=== PATIENT | female | born 1970 | race Caucasian/White ===

== ENCOUNTER → 2017-07-24 | Outpatient (CLI) | payer OTHER ==
--- NOTE | 2017-07-24 16:54 | RADIOLOGY REPORT (SQ) ---
EXAM DESCRIPTION: LUMBAR SPINE COMPLETE COMPLETED DATE/TIME: 07/24/2017 4:46 pm REASON FOR STUDY: LOW BACK PAIN M54.5 LOW BACK PAIN COMPARISON: None. NUMBER OF VIEWS: Five views including obliques. TECHNIQUE: AP, lateral, oblique, and sacral radiographic images acquired of the lumbar spine. LIMITATIONS: None. FINDINGS: MINERALIZATION: Normal. SEGMENTATION: Normal. No transitional anatomy. ALIGNMENT: Normal. VERTEBRAE: Maintained height. No fracture or worrisome bone lesion. DISCS: Disc space narrowing in the lower lumbar spine, particularly at L4-L5. POSTERIOR ELEMENTS: Pedicles and facets are intact. No pars defect or posterior arch defects. HARDWARE: None in the spine. PARASPINAL SOFT TISSUES: Normal. PELVIS: Intact as visualized. No fractures or worrisome bone lesions. SI joints intact. OTHER: No other significant finding. IMPRESSION: DEGENERATIVE DISC DISEASE AT L4-L5. NO ACUTE FINDINGS. TECHNICAL DOCUMENTATION: JOB ID: [id number] [employer]- All Rights Reserved
== END ==
LOC: OD 16:27
PROVIDERS: ATTEND Physician Assistant
DX: M54.5 Low back pain (principal)
CPT/HCPCS: 72110

== ENCOUNTER → 2019-09-17 | Outpatient (CLI) | payer OTHER ==
--- NOTE | 2019-09-17 16:50 | RADIOLOGY REPORT (SQ) ---
EXAM DESCRIPTION: CTA CHEST COMPLETED DATE/TIME: 09/17/2019 4:18 pm REASON FOR STUDY: R00.0 TACHYCARDIA, UNSPECIFIED, R79.89 OTHER SPECIFIED ABNORMAL FINDINGS OF R00.0 TACHYCARDIA, UNSPECIFIED R79.89 OTHER SPECIFIED ABNORMAL FINDINGS OF BLOOD CHEMISTRY R00.2 PALPITA TIONS COMPARISON: None. TECHNIQUE: CT scan of the chest performed using helical scanning technique with dynamic intravenous contrast injection. Images reviewed with lung, soft tissue and bone windows. Reconstructed coronal and sagittal MPR images reviewed. Additional 3 dimensional post-processing performed to develop Maximal Intensity Projection images (GA P). All images stored on PACS. All CT scanners at this facility use dose modulation, iterative reconstruction, and/or weight based d osing when appropriate to reduce radiation dose to as low as reasonably achievable (ALARA). [facility]: Dose Right [facility]: CareDose [facility]: Dose Right [facility]: Teradose 4D [facility]: Tyba CONTRAST TYPE AND DOSE: contrast/concentration: Isovue 350.00 mg/ml; Total Contrast Delivered: 64.0 ml; Total Saline Delivered: 80.0 ml Contrast bolus optimized for the pulmonary arteries. Not diagnostic for the aorta. RENAL FUNCTION: None required. The patient is less than 50 years old. RADIATION DOSE: CT Rad equipment meets quality standard of care and radiation dose reduction techniq ues were employed. CTDIvol: 14.7 - 15.0 mGy. DLP: 612 mGy-cm. . LIMITATIONS: None. FINDINGS: LUNGS AND PLEURA: No masses, infiltrates, or pneumothorax. No pleural effusions or pleura l calcifications. AORTA AND GREAT VESSELS: No aneurysm. Contrast bolus not optimized for the aorta. HEART: No pericardial effusion. No significant coronary artery calcifications. Normal right to left ventricular ratio. PULMONARY ARTERIES: No emboli visualized in the main pulmonary arteries or the segmental branches. HILAR AND MEDIASTINAL STRUCTURES: No identified masses or abnormal nodes. HARDWARE: None in the chest. UPPER ABDOMEN: No significant findings. Limited exam. THYROID AND OTHER SOFT TISSUES: No masses. No adenopathy. BONES: No acute findings. Pectus excavatum. 3D MIPS: Confirm above findings. OTHER: No other significant finding. IMPRESSION: No evidence of pulmonary embolus or other acute intrathoracic process. COMMENT: Quality ID # [id number]: Final reports with documentation of one or more dose reduction techniques (e.g., Automated exposure control, adjustment of the mA and/or kV according to patient size, use of iterative reconstruction technique) TECHNICAL DOCUMENTATION: JOB ID: [id number] [employer]- All Rights Reserved Reading location - IP/workstation name: [email or web address]
== END ==
LOC: RAD 15:45
PROVIDERS: ATTEND Family Medicine
DX: R00.0 Tachycardia, unspecified (principal); R00.2 Palpitations; R79.89 Other specified abnormal findings of blood chemistry
CPT/HCPCS: 71275

== ENCOUNTER → 2019-09-17 | Outpatient (CLI) | payer OTHER ==
[2019-09-17 09:01] LABS: ABSOLUTE BASOPHILS # (AUTO) 0.1 10^3/uL (0.0-0.2); ABSOLUTE EOSINOPHILS # (AUTO) 0.1 10^3/uL (0.0-0.6); ABSOLUTE LYMPHOCYTES (AUTO) 1.8 10^3/uL (0.5-4.7); ABSOLUTE MONOCYTES (AUTO) 0.6 10^3/uL (0.1-1.4); ABSOLUTE NEUT (AUTO) 5.2 10^3/uL (1.7-8.2); BASOPHILS % (AUTO) 0.8 % (0-2); EOSINOPHILS % (AUTO) 1.4 % (0-6); HEMATOCRIT 42.4 % (36.0-47.0); HEMOGLOBIN 14.6 g/dL (12.0-15.5); LYMPHOCYTES % (AUTO) 22.6 % (13-45); MEAN CORPUSCULAR HEMOGLOBIN 31.4 pg (27.0-33.4); MEAN CORPUSCULAR HGB CONC 34.4 g/dL (32.0-36.0); MEAN CORPUSCULAR VOLUME 91 fl (80-97); MONOCYTES % (AUTO) 8.1 % (3-13); PLATELET COUNT 299 10^3/uL (150-450); RED BLOOD COUNT 4.64 10^6/uL (3.72-5.28); RED CELL DISTRIBUTION WIDTH 13.4 % (11.5-14.0); SEGMENTED NEUTROPHILS % (AUTO) 67.1 % (42-78); TOTAL CELLS COUNTED % (AUTO) 100 %; WHITE BLOOD COUNT 7.8 10^3/uL (4.0-10.5)
[2019-09-17 09:20] LABS: ALKALINE PHOSPHATASE 92 U/L (38-126); ANION GAP 10 (5-19); ASPARTATE AMINO TRANSFERASE 27 U/L (14-36); BILIRUBIN,DIRECT 0.2 mg/dL (0.0-0.4); BILIRUBIN,TOTAL 0.9 mg/dL (0.2-1.3); BLOOD UREA NITROGEN 21 mg/dL (7-20); CALCIUM 9.3 mg/dL (8.4-10.2); CARBON DIOXIDE 23 mmol/L (22-30); CHLORIDE 105 mmol/L (98-107); GLUCOSE 93 mg/dL (75-110); POTASSIUM 4.1 mmol/L (3.6-5.0); TOTAL PROTEIN 7.1 g/dL (6.3-8.2)
== END ==
LOC: OD 08:19
PROVIDERS: ATTEND Physician Assistant
DX: R00.0 Tachycardia, unspecified (principal)
CPT/HCPCS: 36415; 80053; 83735; 84443; 85025; 85379

== ENCOUNTER 2019-09-22 21:21 | Inpatient (IN) | payer OTHER ==
--- NOTE | 2019-09-22 22:14 | ER Document Report ---
ED Medical Screen (RME) - General Chief Complaint: Palpitations Stated Complaint: HEART RACING Time Seen by Provider: 09/22/19 22:09 Primary Care Provider: LOLY LA MD [Primary Care Provider] - Follow up as needed Notes: 49-year-old female presents with palpitations/feeling like her heart races, dyspnea, and dizziness for 1 week. Patient states she was seen by Dr. Iyer today and started on a beta-carlo. Patient states that palpitations are worse when she lays down and when she moves. EKG shows sinus tach. Lungs clear to auscultation bilaterally. Mildly tachycardic. Patient describes dizziness as "feeling like she is going to pass out." I have greeted and performed a rapid initial assessment of this patient. A comprehensive ED assessment and evaluation of the patient, analysis of test re sults and completion of the medical decision making process with be conducted by additional ED providers. TRAVEL OUTSIDE OF THE [place] IN LAST 30 DAYS: No - Related Data Allergies/Adverse Reactions: Penicillins Allergy (Verified 09/22/19 22:04) Sulfa (Sulfonamide Antibiotics) Allergy (Verified 09/22/19 22:04) Past Medical History - Immunizations Hx Diphtheria, Pertussis, Tetanus Vaccination: No Physical Exam - Vital signs Vitals: Temp Pulse Resp BP Pulse Ox 97.9 F 123 H 18 130/83 H 94 09/22/19 21:53 09/22/19 21:53 09/22/19 21:53 09/22/19 21:53 09/22/19 21:53 Course - Vital Signs Vital signs: Temp Pulse Resp BP Pulse Ox 97.9 F 123 H 18 130/83 H 94 09/22/19 21:53 09/22/19 21:53 09/22/19 21:53 09/22/19 21:53 09/22/19 21:53 Doctor's Discharge - Discharge Referrals: LOLY AL MD [Primary Care Provider] - Follow up as needed
--- NOTE | 2019-09-22 22:39 | RADIOLOGY REPORT (SQ) ---
EXAM DESCRIPTION: XR CHEST 2 VIEWS COMPLETED DATE/TME: 09/22/2019 22:12 CLINICAL HISTORY: 49 years Female, dyspnea, palpitations COMPARISON: None. FINDINGS: Adequate lung volume, mild interstitial markings, small bibasilar atelectasis or scar, normal cardiac silhouette, and intact bony thorax. IMPRESSION: Mild interstitial markings. Differential diagnosis includes pulmonary edema, atypical pneumonitis, and chronic interstitial lung disease. Small bibasilar atelectasis or scar.
[2019-09-22 22:49] LABS: ABSOLUTE BASOPHILS # (AUTO) 0.1 10^3/uL (0.0-0.2); ABSOLUTE EOSINOPHILS # (AUTO) 0.1 10^3/uL (0.0-0.6); ABSOLUTE LYMPHOCYTES (AUTO) 2.4 10^3/uL (0.5-4.7); ABSOLUTE NEUT (AUTO) 7.9 10^3/uL (1.7-8.2); BASOPHILS % (AUTO) 0.8 % (0-2); EOSINOPHILS % (AUTO) 0.9 % (0-6); HEMATOCRIT 43.8 % (36.0-47.0); HEMOGLOBIN 14.8 g/dL (12.0-15.5); LYMPHOCYTES % (AUTO) 20.7 % (13-45); MEAN CORPUSCULAR HEMOGLOBIN 31.4 pg (27.0-33.4); MEAN CORPUSCULAR HGB CONC 33.9 g/dL (32.0-36.0); MEAN CORPUSCULAR VOLUME 93 fl (80-97); MONOCYTES % (AUTO) 9.1 % (3-13); PLATELET COUNT 307 10^3/uL (150-450); RED BLOOD COUNT 4.73 10^6/uL (3.72-5.28); RED CELL DISTRIBUTION WIDTH 13.4 % (11.5-14.0); SEGMENTED NEUTROPHILS % (AUTO) 68.5 % (42-78); TOTAL CELLS COUNTED % (AUTO) 100 %; WHITE BLOOD COUNT 11.5 10^3/uL (4.0-10.5)
[2019-09-22 23:01] LABS: ALBUMIN 4.2 g/dL (3.5-5.0); ALKALINE PHOSPHATASE 83 U/L (38-126); ANION GAP 9 (5-19); ASPARTATE AMINO TRANSFERASE 38 U/L (14-36); BILIRUBIN,DIRECT 0.3 mg/dL (0.0-0.4); BILIRUBIN,TOTAL 0.6 mg/dL (0.2-1.3); BLOOD UREA NITROGEN 24 mg/dL (7-20); CALCIUM 9.7 mg/dL (8.4-10.2); CARBON DIOXIDE 25 mmol/L (22-30); CHLORIDE 104 mmol/L (98-107); GLUCOSE 113 mg/dL (75-110); POTASSIUM 4.4 mmol/L (3.6-5.0); TOTAL PROTEIN 7.5 g/dL (6.3-8.2)
[2019-09-23 08:17] LABS: FREE T3 3.72 pg/mL (2.77-5.27); FREE T4 (FREE THYROXINE) 1.16 ng/dL (0.78-2.19)
--- NOTE | 2019-09-23 08:29 | ER Document Report ---
Entered by JOEY GUPTA SCRIBE 09/23/19 0650 Acting as scribe for:STEFFI SANCHEZ MD ED Cardiac - General Chief Complaint: Palpitations Stated Complaint: HEART RACING Time Seen by Provider: 09/22/19 22:09 Mode of Arrival: Ambulatory Information source: Patient Notes: This 49 year old female patient presents to the emergency department today with complaints of heart palpitations with a heart racing sensation. Patient has already been started getting worked up outpatient for this, stating she wore a holter monitor last week and she has sinus tachycardia with a rate up to 175 during that week. Patient has an echocardiogram scheduled for next week. Patient states that last night her "heart rate would go from 97 to 125 and then back down". Patient adds that she would become very short of breath when her heart rate was elevated. On Sep 17 the patient had a D-dimer come back at 0.78 with a normal CTA and a normal TSH. TRAVEL OUTSIDE OF THE [place] IN LAST 30 DAYS: No - Related Data Allergies/Adverse Reactions: Penicillins Allergy (Verified 09/22/19 22:04) Sulfa (Sulfonamide Antibiotics) Allergy (Verified 09/22/19 22:04) Home Medications: LOPRESSOR. AMITRIPTYLINE. ELETRITAN Past Medical History - General Information source: Patient - Social History Smoking Status: Never Smoker Cigarette use (# per day): No Frequency of alcohol use: None Drug Abuse: None Lives with: Family Family History: CAD Patient has suicidal ideation: No Patient has homicidal ideation: No - Immunizations Hx Diphtheria, Pertussis, Tetanus Vaccination: No Review of Systems - Review of Systems Constitutional: No symptoms reported EENT: No symptoms reported Cardiovascular: See HPI, Palpitations, Heart racing. denies: Chest pain Respiratory: No symptoms reported Gastrointestinal: No symptoms reported Genitourinary: No symptoms reported Female Genitourinary: No symptoms reported Musculoskeletal: No symptoms reported Skin: No symptoms reported Hematologic/Lymphatic: No symptoms reported Neurological/Psychological: No symptoms reported -: Yes All other systems reviewed and negative Physical Exam - Vital signs Vitals: Temp Pulse Resp BP Pulse Ox 97.9 F 123 H 18 130/83 H 94 09/22/19 21:53 09/22/19 21:53 09/22/19 21:53 09/22/19 21:53 09/22/19 21:53 - Notes Notes: Physical Exam: General: Alert, appears well. HEENT: Normocephalic. Atraumatic. PERRL. Extraocular movements intact. Oropharynx clear. Neck: Supple. Non-tender. Respiratory: No respiratory distress. Clear and equal breath sounds bilaterally. Cardiovascular: Sinus tachycardia. Abdominal: Normal Inspection. Non-tender. No distension. Normal Bowel Sounds. Back: No gross abnormalities. Extremities: Moves all four extremities. Upper extremities: Normal inspection. Normal ROM. Lower extremities: Normal inspection. No edema. Normal ROM. Neurological: Normal cognition. AAOx4. Normal speech. Psychological: Normal affect. Normal Mood. Skin: Warm. Dry. Normal color. Course - Re-evaluation Re-evalutation: 09/23/19 08:40 The patient has a persistent tachycardia now for in excess of a week. She reports symptoms of dyspnea and states at night when she lays down she hears a crackling in her glottic region of her neck when she is breathing. Chest x-ray today suggest mild interstitial markings consistent with pulmonary edema or atypical pneumonitis. Her BNP is 1710 09/23/19 08:54 Dr. Alatorre a call back and recommended giving patient Cardizem 5 mg IV and anxiolytic such as Xanax for anxiety. - Vital Signs Vital signs: Temp Pulse Resp BP Pulse Ox 98.1 F 113 H 17 130/88 H 97 09/23/19 01:37 09/23/19 01:37 09/23/19 06:01 09/23/19 06:00 09/23/19 06:01 - Laboratory Result Diagrams: 09/22/19 22:25 09/22/19 22:25 Laboratory results interpreted by me: 09/22/19 09/22/19 09/22/19 22:25 22:25 22:25 WBC 11.5 H D-Dimer BUN 24 H Glucose 113 H AST 38 H NT-Pro-B Natriuret Pep 1710 H 09/23/19 08:00 WBC D-Dimer 1.07 H BUN Glucose AST NT-Pro-B Natriuret Pep - Diagnostic Test Radiology reviewed: Image reviewed, Reports reviewed - Chest x-ray is read as mild interstitial markings with a differential diagnosis including pulmonary edema, atypical pneumonitis, and chronic interstitial lung disease. - EKG Interpretation by Me EKG shows normal: Sinus rhythm, [place], Intervals. abnormal: QRS Complexes - Borderline R wave progression in anterior leads, ST-T Waves - Nonspecific lateral T wave abnormalities Rate: Tachycardia - 129 [place]/QRS: Left axis deviation P Waves: LAE - Consults Dr. Horan Time consulted: 08:30 Consulted provider: will see as inpatient Discharge - Discharge Clinical Impression: Tachycardia with heart rate 121-140 beats per minute, Elevated brain natriuretic peptide (BNP) level, Pulmonary vascular congestion Condition: Stable Disposition: ADMITTED INPATIENT Admitting Provider: Aung Unit Admitted: Telemetry Scribe Attestation: 09/23/19 08:43 I personally performed the services described in the documentation, reviewed and edited the documentation which was dictated to the scribe in my presence, and it accurately records my words and actions. I personally performed the services described in the documentation, reviewed and edited the documentation which was dictated to the scribe in my presence, and it accurately records my words and actions.
[2019-09-23] MEDS ORDERED: DILTIAZEM HCL INJ 25 MG/5 ML VIAL IV ONE (08:53)
[2019-09-23] MEDS ORDERED: LORAZEPAM INJ 2 MG/1 ML VIAL IV ONE (08:55)
[2019-09-23] MEDS ORDERED: ACETAMINOPHEN 325 MG TABLET PO PRN (09:03)
--- NOTE | 2019-09-23 09:05 | EKG REPORT ---
SEVERITY:- ABNORMAL ECG - SINUS TACHYCARDIA PROBABLE LEFT ATRIAL ABNORMALITY BORDERLINE LEFT AXIS DEVIATION BORDERLINE R WAVE PROGRESSION, ANTERIOR LEADS NONSPECIFIC T ABNORMALITIES, LATERAL LEADS : Confirmed by: Evens Foreman MD 23-Sep-2019 07:04:41
[2019-09-23 09:11] LABS: C-REACTIVE PROTEIN 9.3 mg/L (<10.0)
[2019-09-23 09:37] LABS: ANION GAP 7 (5-19); BLOOD UREA NITROGEN 20 mg/dL (7-20); CALCIUM 9.3 mg/dL (8.4-10.2); CARBON DIOXIDE 27 mmol/L (22-30); CHLORIDE 104 mmol/L (98-107); GLUCOSE 98 mg/dL (75-110)
[2019-09-23] MEDS: ENOXAPARIN SODIUM INJ 40 MG/0.4 ML DISP.SYRIN SUBCUT SCH (09:47)
[2019-09-23 10:32] LABS: CREATINE KINASE MB 0.94 ng/mL (<4.55); TROPONIN I 0.023 ng/mL
[2019-09-23] MEDS ORDERED: DIGOXIN INJ 0.5 MG/2 ML AMPULE IV ONE ×2 (10:40→20:00)
[2019-09-23] MEDS ORDERED: FUROSEMIDE INJ/PF 20 MG/2 ML SDV IV ONE (10:42)
[2019-09-23] MEDS: LISINOPRIL 5 MG TABLET PO SCH ×2 (11:27→21:09)
[2019-09-23 15:23] LABS: CREATINE KINASE MB 1.13 ng/mL (<4.55); TROPONIN I 0.024 ng/mL
--- NOTE | 2019-09-23 19:02 | PDOC H&P ---
History of Present Illness Admission Date/PCP: 09/23/19 08:49 SARY ERIC MD Patient complains of: Heart racing History of Present Illness: SORAYA BAPTISTE is a 49 year old female This is a 49-year-old female's with a history of the anxiety disorder recently came to the office last week with the complaining of heart racing's patient have a EKG done was a sinus tachycardia Holter monitor was done with no significant findings and patient's was referred to the cardiology and also order the CT angiograms which is negative for any pulmonary embolisms Patient seen by Dr. MIJARES and start on a beta-carlo but patients did not feel well this morning patients noticed that her heart is racing in the emergency department patient heart rate was 1 20-1 30 range patient was giving the Cardizem IV Patient's NT BNP was elevated patient's chest x-ray shows interstitial edema Is denied any fever no chest pain Is denied any previous heart problems Discussed with the Dr. Iyer and he will evaluate the patient's and he will order the test but suggest to not order any echo until he see the patient's Past Medical History Psychiatric Medical History: Reports: General Anxiety Disorder Social History Information Source: Patient Lives with: Family Smoking Status: Never Smoker Frequency of Alcohol Use: Rare Hx Recreational Drug Use: No Hx Prescription Drug Abuse: No Family History Family History: Reviewed & Not Pertinent, CAD Parental Family History Reviewed: Yes Children Family History Reviewed: Yes Sibling(s) Family History Reviewed.: Yes Medication/Allergy Home Medications: Fluoxetine HCl [Prozac] 10 mg PO DAILY 01/06/14 Ibuprofen 600 mg PO TID #30 tablet 01/06/14 Allergies/Adverse Reactions: Penicillins Allergy (Verified 09/22/19 22:04) Sulfa (Sulfonamide Antibiotics) Allergy (Verified 09/22/19 22:04) Review of Systems Constitutional: ABSENT: chills, fever(s), headache(s), weight gain, weight loss Eyes: ABSENT: visual disturbances Ears: ABSENT: hearing changes Cardiovascular: ABSENT: chest pain, dyspnea on exertion, edema, orthropnea, palpitations Respiratory: ABSENT: cough, hemoptysis Gastrointestinal: ABSENT: abdominal pain, constipation, diarrhea, hematemesis, hematochezia, nausea, vomiting Genitourinary: ABSENT: dysuria, hematuria Musculoskeletal: ABSENT: joint swelling Integumentary: ABSENT: rash, wounds Neurological: ABSENT: abnormal gait, abnormal speech, confusion, dizziness, focal weakness, syncope Psychiatric: ABSENT: anxiety, depression, homidical ideation, suicidal ideation Endocrine: ABSENT: cold intolerance, heat intolerance, menstrual abnormalities, polydipsia, polyuria Hematologic/Lymphatic: ABSENT: easy bleeding, easy bruising, lymphadenopathy Physical Exam Vital Signs: Temp Pulse Resp BP Pulse Ox 98.1 F 113 H 23 H 130/85 H 98 09/23/19 01:37 09/23/19 01:37 09/23/19 09:45 09/23/19 09:45 09/23/19 09:45 Intake & Output 09/22/19 09/23/19 09/24/19 06:59 06:59 06:59 Weight 99.79 kg General appearance: PRESENT: no acute distress, well-developed, well-nourished Head exam: PRESENT: atraumatic, normocephalic Eye exam: PRESENT: conjunctiva pink, EOMI, PERRLA. ABSENT: scleral icterus Ear exam: PRESENT: normal external ear exam Mouth exam: PRESENT: moist, tongue midline Neck exam: PRESENT: full ROM. ABSENT: carotid bruit, JVD, lymphadenopathy, thyromegaly Respiratory exam: PRESENT: clear to auscultation khanh Cardiovascular exam: PRESENT: RRR, tachycardia. ABSENT: diastolic murmur, rubs, systolic murmur Pulses: PRESENT: normal dorsalis pedis pul, +2 pedal pulses bilateral Vascular exam: PRESENT: normal capillary refill GI/Abdominal exam: PRESENT: normal bowel sounds, soft. ABSENT: distended, guarding, mass, organolmegaly, rebound, tenderness Rectal exam: PRESENT: deferred Extremities exam: ABSENT: pedal edema Neurological exam: PRESENT: alert, awake, oriented to person, oriented to place, oriented to time, oriented to situation, CN II-XII grossly intact. ABSENT: motor sensory deficit Psychiatric exam: PRESENT: appropriate affect, normal mood. ABSENT: homicidal ideation, suicidal ideation Skin exam: PRESENT: dry, intact, warm. ABSENT: cyanosis, rash Results Laboratory Results: 09/22/19 22:25 09/23/19 08:00 09/22/19 09/22/19 09/22/19 22:25 22:25 22:25 WBC 11.5 H RBC 4.73 Hgb 14.8 Hct 43.8 MCV 93 MCH 31.4 MCHC 33.9 RDW 13.4 Plt Count 307 Seg Neutrophils % 68.5 Sodium 137.9 Potassium 4.4 Chloride 104 Carbon Dioxide 25 Anion Gap 9 BUN 24 H Creatinine 0.54 Est GFR ( Amer) > 60 Glucose 113 H Calcium 9.7 Total Bilirubin 0.6 AST 38 H Alkaline Phosphatase 83 C-Reactive Protein Total Protein 7.5 Albumin 4.2 TSH 3.19 Free T4 Free T3 pg/mL 09/22/19 09/22/19 09/23/19 22:25 22:25 08:00 WBC RBC Hgb Hct MCV MCH MCHC RDW Plt Count Seg Neutrophils % Sodium Potassium Chloride Carbon Dioxide Anion Gap BUN Creatinine Est GFR ( Amer) Glucose Calcium Total Bilirubin AST Alkaline Phosphatase C-Reactive Protein 9.3 Total Protein Albumin TSH 2.41 Free T4 1.16 Free T3 pg/mL 3.72 09/23/19 08:00 WBC RBC Hgb Hct MCV MCH MCHC RDW Plt Count Seg Neutrophils % Sodium 137.8 Potassium 4.0 Chloride 104 Carbon Dioxide 27 Anion Gap 7 BUN 20 Creatinine 0.52 Est GFR ( Amer) > 60 Glucose 98 Calcium 9.3 Total Bilirubin AST Alkaline Phosphatase C-Reactive Protein Total Protein Albumin TSH Free T4 Free T3 pg/mL 09/22/19 09/22/19 09/23/19 22:25 22:25 05:08 Creatine Kinase Troponin I 0.028 0.032 NT-Pro-B Natriuret Pep 1710 H 09/23/19 09/23/19 08:00 09:43 Creatine Kinase 63 Troponin I 0.030 NT-Pro-B Natriuret Pep Impressions: Chest X-Ray 09/22/19 22:12 IMPRESSION: Mild interstitial markings. Differential diagnosis includes pulmonary edema, atypical pneumonitis, and chronic interstitial lung disease. Small bibasilar atelectasis or scar. Assessment & Plan - Diagnosis (1) Tachycardia with heart rate 121-140 beats per minute Is this a current diagnosis for this admission?: Yes Plan: Patient's TSH is normal CT angiogram was done recently was all normal Will consult Dr. MIJARES already for further evaluate (2) Generalized anxiety disorder Is this a current diagnosis for this admission?: Yes Plan: Will consider start the BuSpar 5 mg p.o. every 8 (3) Elevated brain natriuretic peptide (BNP) level Is this a current diagnosis for this admission?: Yes Plan: With elevated BNP could be underlying tachycardia related but rule out any heart failure's with the pulmonary vascular congestions discussed with the Dr. Iyer he will evaluate the patient (4) Pulmonary vascular congestion Is this a current diagnosis for this admission?: Yes - Time Time Spent: 30 to 50 Minutes Medications reviewed and adjusted accordingly: Yes Anticipated discharge: Home Within: Other - Inpatient Certification Based on my medical assessment, after consideration of the patient's co morbidities, presenting symptoms, or acuity I expect that the services needed warrant INPATIENT care.: Yes I certify that my determination is in accordance with my understanding of Medicare's requirements for reasonable and necessary INPATIENT services [42 CFR 412.3e].: Yes Medical Necessity: Significant Comorbidiites Make Outpatient Treatment Too Risky, Need Close Monitoring Due to Risk of Patient Decompensation, Need For Continuous Telemetry Monitoring Post Hospital Care: D/C Rib Trim Separator Documentation
--- NOTE | 2019-09-23 19:14 | PDOC CONSULTATION ---
Consultation-Blank Consultation: CARDIOLOGY consultation by Dr. Huong Iyer on 09/23/2019. Patient seen at initially in the emergency room at 10 AM for about 15 minutes, and subsequently 3 PM for 60 minutes. Total time for this consultation is 75 minutes. REASON FOR CONSULTATION: Patient with TACHYCARDIA, AND SYMPTOMS OF PALPITATIONS AND SHORTNESS OF BREATH WHEN THE HEART RATE IS FAST. . CONSULT REQUESTING PHYSICIAN: Dr. Horan. HISTORY OF PRESENT ILLNESS: Patient is a 49-year-old female with a history of migraine, on amitriptyline. She also has a history of GERD. The patient for a few weeks has been having palpitations and was worked up in Dr. Horan's office. At that time the EKG showed sinus tachycardia. She also had a Holter monitor which showed heart rates sometimes touching 170 bpm, but they were all sinus tachycardia. She was seen in my office in consultation yesterday and her examination was unremarkable. She definitely had no summation gallop at that time. She was placed on a beta-carlo and I had asked her to taper herself off the amitriptyline. The patient states after taking a dose of metoprolol she felt a heart rate going up and down and felt very weak and short of short of breath especially when the heart rate was fast. And she came to the emergency room. My initial examination in the emergency room showed that the patient had definite summation gallop suggestive of left ventricular failure. Her BNP was also elevated. Her physical examination was unremarkable since there was no rales. I given her 20 of Lasix intravenously, given a dose of digoxin 0.25 mg IV push x1 and also a dose of CONSTANTIN inhibitor. Subsequently when I saw her at 3:00 there was no summation gallop. The patient claims no chest pain or discomfort. She states she has no PND orthopnea but at times at night she hears some rattling in her throat. This is not associated with chest pain or shortness of breath. She has no history of asthma or COPD. She is not a smoker. The patient states that she has no dyspnea on exertion but if her heart rate should go fast then she becomes short of breath. There is no history of fever chills or Reiger's. There is no history of acute joint inflammation. There is no syncope or near syncope. She does have generalized fatigue and weakness when her heart rate is high. She has no history of sleep apnea. She has no history of diabetes mellitus or thyroid disease. Last week the patient had a work-up in the as an outpatient and the d-dimer was elevated at 0.78. CT scan of the chest was negative for pulmonary emboli. Her TSH was normal. I had ordered an echo as an outpatient, but the patient came to the emergency room today. Past Medical History: Denies history of coronary artery disease or angina. No history of hypertension or diabetes mellitus. No history of thyroid disease. She has a history of migraine which is well controlled on amitriptyline. She has no history of chronic kidney disease. There is no history of asthma or COPD. She does have a history of anxiety at times. She has a history of GERD. There is no history of arthritis or collagen vascular disease. There is no history of TIA CVA. PAST SURGICAL HISTORY: None. Allergy: She is allergic to penicillin and sulfa. RESUSCITATION STATUS: The patient is a full code. Her is her surrogate healthcare decision maker. Home Medications: LOPRESSOR. AMITRIPTYLINE. ELETRITAN Social History Smoking Status: Never Smoker Cigarette use (# per day): No Frequency of alcohol use: None Drug Abuse: None Lives with: Family Family History: CAD Patient has suicidal ideation: No Patient has homicidal ideation: No - Immunizations Hx Diphtheria, Pertussis, Tetanus Vaccination: No Review of Systems - Review of Systems Constitutional: No symptoms reported EENT: No symptoms reported Cardiovascular: See HPI, Palpitations, Heart racing. denies: Chest pain. She complains of rapid beating of the heart and with a heart rate very fast she become short of breath. Otherwise there is no dyspnea on exertion. Respiratory: No symptoms reported Gastrointestinal: No symptoms reported Genitourinary: No symptoms reported Female Genitourinary: No symptoms reported Musculoskeletal: No symptoms reported Skin: No symptoms reported Hematologic/Lymphatic: No symptoms reported Neurological/Psychological: No symptoms reported -: Yes All other systems reviewed and negative ON physical examination: The patient mildly obese. In no acute distress. Selected Entries 09/23/19 09/23/19 09/23/19 09:45 10:15 10:16 Temperature Temperature Source Pulse Rate [ Left Finger] Heart Rate ( 123 Monitors) Respiratory 11 L Rate Blood Pressure 137/97 H Blood Pressure [Right Upper Arm] Blood Pressure 110 Mean Blood Pressure Mean [Right Upper Arm] Blood Pressure Position [Right Upper Arm] O2 Sat by Pulse 98 98 Oximetry Oxygen Delivery Method ( includes room air) 09/23/19 14:36 Temperature 97.5 F Temperature Oral Source Pulse Rate [ 112 H Left Finger] Heart Rate ( Monitors) Respiratory 18 Rate Blood Pressure Blood Pressure 122/76 [Right Upper Arm] Blood Pressure Mean Blood Pressure 91 Mean [Right Upper Arm] Blood Pressure Supine Position [Right Upper Arm] O2 Sat by Pulse 99 Oximetry Oxygen Delivery Room Air Method ( includes room air) HEAD: Is atraumatic normocephalic. EYES: Pupils are equal round regular reactive light accommodation. Extraocular movements are normal. There is no conjunctival pallor. There is no scleral icterus. EARS: Tympanic membranes are intact. Externally external auditory canals are clear. NOSE: There is no deviated nasal septum. There is no inflammation nasal mucous membrane. MOUTH: Mucous membranes of the mouth are moist. There is no ulcers. There is no bleeding from the gums. THROAT: There is no redness of the oropharynx. There is no exudates. SKIN: There is no skin rashes. There is no petechia or ecchymosis. There is no skin lesions. NECK: Supple. There is no definite JVD. Carotids are equal there is no bruit there is no lymphadenopathy. There is no accessory muscles of respiration use. There is no goiter. LUNGS: Clear to auscultation percussion without any rhonchi rales or wheezing. HEART: On examination the emergency room S1-S2 is heard normally. There is sinus tachycardia. There is a summation gallop with S3 and S4 gallop in the emergency room this resolved after the patient got digoxin Lasix and CONSTANTIN inhibitor in the emergency room. On examination around 3 PM. There was no summation gallop. There is systolic murmur left sternal border and the apex. There is no rub. ABDOMEN: Is mildly obese. Nontender. There is no hepatosplenomegaly. Bowel sounds are well heard. EXTREMITIES: Femorals are slightly deep. There is no femoral bruits. Leg pulses are well felt. There is no pedal edema. There is no DVT/cellulitis. There is no cyanosis or clubbing. There is no calf tenderness. TOOL COORDINATOR: The patient is conscious awake alert oriented x3 with no focal deficits. PSYCHIATRIC: The patient judgment and insight are intact her affect is normal EKG: Shows sinus tachycardia. No acute changes. Diffuse nonspecific ST-T changes. Labs- Entire Visit 09/22/19 09/22/19 09/22/19 22:25 22:25 22:25 WBC 11.5 H RBC 4.73 Hgb 14.8 Hct 43.8 MCV 93 MCH 31.4 MCHC 33.9 RDW 13.4 Plt Count 307 Lymph % (Auto) 20.7 Payne % (Auto) 9.1 Eos % (Auto) 0.9 Baso % (Auto) 0.8 Absolute Neuts (auto) 7.9 Absolute Lymphs (auto) 2.4 Absolute Monos (auto) 1.0 Absolute Eos (auto) 0.1 Absolute Basos (auto) 0.1 Seg Neutrophils % 68.5 ESR D-Dimer Sodium 137.9 Potassium 4.4 Chloride 104 Carbon Dioxide 25 Anion Gap 9 BUN 24 H Creatinine 0.54 Est GFR ( Amer) > 60 Est GFR (MDRD) Non-Af > 60 Glucose 113 H Calcium 9.7 Total Bilirubin 0.6 Direct Bilirubin 0.3 Neonat Total Bilirubin Not Reportable Neonat Direct Bilirubin Not Reportable Neonat Indirect Bili Not Reportable AST 38 H ALT 48 Alkaline Phosphatase 83 Creatine Kinase CK-MB (CK-2) Troponin I 0.028 C-Reactive Protein NT-Pro-B Natriuret Pep Total Protein 7.5 Albumin 4.2 TSH Free T4 Free T3 pg/mL 09/22/19 09/22/19 09/22/19 22:25 22:25 22:25 WBC RBC Hgb Hct MCV MCH MCHC RDW Plt Count Lymph % (Auto) Payne % (Auto) Eos % (Auto) Baso % (Auto) Absolute Neuts (auto) Absolute Lymphs (auto) Absolute Monos (auto) Absolute Eos (auto) Absolute Basos (auto) Seg Neutrophils % ESR D-Dimer Sodium Potassium Chloride Carbon Dioxide Anion Gap BUN Creatinine Est GFR ( Amer) Est GFR (MDRD) Non-Af Glucose Calcium Total Bilirubin Direct Bilirubin Neonat Total Bilirubin Neonat Direct Bilirubin Neonat Indirect Bili AST ALT Alkaline Phosphatase Creatine Kinase CK-MB (CK-2) Troponin I C-Reactive Protein NT-Pro-B Natriuret Pep 1710 H Total Protein Albumin TSH 3.19 Free T4 1.16 Free T3 pg/mL 3.72 09/22/19 09/23/19 09/23/19 22:25 05:08 08:00 WBC RBC Hgb Hct MCV MCH MCHC RDW Plt Count Lymph % (Auto) Payne % (Auto) Eos % (Auto) Baso % (Auto) Absolute Neuts (auto) Absolute Lymphs (auto) Absolute Monos (auto) Absolute Eos (auto) Absolute Basos (auto) Seg Neutrophils % ESR D-Dimer 1.07 H Sodium Potassium Chloride Carbon Dioxide Anion Gap BUN Creatinine Est GFR ( Amer) Est GFR (MDRD) Non-Af Glucose Calcium Total Bilirubin Direct Bilirubin Neonat Total Bilirubin Neonat Direct Bilirubin Neonat Indirect Bili AST ALT Alkaline Phosphatase Creatine Kinase CK-MB (CK-2) Troponin I 0.032 C-Reactive Protein 9.3 NT-Pro-B Natriuret Pep Total Protein Albumin TSH Free T4 Free T3 pg/mL 09/23/19 09/23/19 09/23/19 08:00 08:00 08:00 WBC RBC Hgb Hct MCV MCH MCHC RDW Plt Count Lymph % (Auto) Payne % (Auto) Eos % (Auto) Baso % (Auto) Absolute Neuts (auto) Absolute Lymphs (auto) Absolute Monos (auto) Absolute Eos (auto) Absolute Basos (auto) Seg Neutrophils % ESR D-Dimer Sodium 137.8 Potassium 4.0 Chloride 104 Carbon Dioxide 27 Anion Gap 7 BUN 20 Creatinine 0.52 Est GFR ( Amer) > 60 Est GFR (MDRD) Non-Af > 60 Glucose 98 Calcium 9.3 Total Bilirubin Direct Bilirubin Neonat Total Bilirubin Neonat Direct Bilirubin Neonat Indirect Bili AST ALT Alkaline Phosphatase Creatine Kinase CK-MB (CK-2) Troponin I 0.030 C-Reactive Protein NT-Pro-B Natriuret Pep Total Protein Albumin TSH 2.41 Free T4 Free T3 pg/mL 09/23/19 09/23/19 09/23/19 09:43 09:43 09:43 WBC RBC Hgb Hct MCV MCH MCHC RDW Plt Count Lymph % (Auto) Payne % (Auto) Eos % (Auto) Baso % (Auto) Absolute Neuts (auto) Absolute Lymphs (auto) Absolute Monos (auto) Absolute Eos (auto) Absolute Basos (auto) Seg Neutrophils % ESR 14 D-Dimer Sodium Potassium Chloride Carbon Dioxide Anion Gap BUN Creatinine Est GFR ( Amer) Est GFR (MDRD) Non-Af Glucose Calcium Total Bilirubin Direct Bilirubin Neonat Total Bilirubin Neonat Direct Bilirubin Neonat Indirect Bili AST ALT Alkaline Phosphatase Creatine Kinase 63 CK-MB (CK-2) 0.94 Troponin I 0.023 C-Reactive Protein NT-Pro-B Natriuret Pep Total Protein Albumin TSH Free T4 Free T3 pg/mL 09/23/19 09/23/19 14:30 14:30 WBC RBC Hgb Hct MCV MCH MCHC RDW Plt Count Lymph % (Auto) Payne % (Auto) Eos % (Auto) Baso % (Auto) Absolute Neuts (auto) Absolute Lymphs (auto) Absolute Monos (auto) Absolute Eos (auto) Absolute Basos (auto) Seg Neutrophils % ESR D-Dimer Sodium Potassium Chloride Carbon Dioxide Anion Gap BUN Creatinine Est GFR ( Amer) Est GFR (MDRD) Non-Af Glucose Calcium Total Bilirubin Direct Bilirubin Neonat Total Bilirubin Neonat Direct Bilirubin Neonat Indirect Bili AST ALT Alkaline Phosphatase Creatine Kinase 57 CK-MB (CK-2) 1.13 Troponin I 0.024 C-Reactive Protein NT-Pro-B Natriuret Pep Total Protein Albumin TSH Free T4 Free T3 pg/mL Chest X-Ray 09/22/19 22:12 IMPRESSION: Mild interstitial markings. Differential diagnosis includes pulmonary edema, atypical pneumonitis, and chronic interstitial lung disease. Small bibasilar atelectasis or scar. IMPRESSION/RECOMMENDATION: 1. Palpitations secondary to tachycardia. The patient seems to have sinus tachycardia most likely secondary left ventricle systolic failure due to the patient's exhibiting a summation gallop on auscultation. We will treat the patient with Lasix, CONSTANTIN inhibitor and beta-carlo. Once the heart rate comes down we will check an echo. This which is mild when the patient has acute left ventricular systolic heart failure or acute left ventricular diastolic heart failure. The patient renal function is normal per the patient is not anemic, and the normal alkaline phosphatase essentially excludes Paget's disease, all of which can cause high output failure. Hence I doubt that this is a high output failure. A normal TSH essentially excludes hypo-or hyperthyroidism as a cause of patient's heart failure. The patient's normal sed rate excludes pericarditis or any collagen vascular disease. The differential diagnosis between systolic heart failure and diastolic failure. We will check an echo later this admission. 2. History of migraines.: Patient was on amitriptyline which has not been resumed. 3. History of GERD. 4. Multiple CAD risk factors namely age and family history positive for coronary artery disease. Later when the patient stable will get a IV Lexiscan Cardiolite stress test. 5.? Lipid status: We will check lipids in the morning. 6. So far there is no evidence of a acute coronary syndrome. The patient troponin I are serially negative x2. Medications reviewed. Medications adjusted. Medical management and medical regimen discussed with Dr. Horan. Medical decision making is of high complexity. 60 minutes spent on this patient with more than 50% time spent in direct patient care.
[2019-09-23] MEDS: METOPROLOL SUCCINATE 25 MG TAB.SR.24H PO SCH (21:13)
[2019-09-23 22:31] LABS: CREATINE KINASE MB 0.87 ng/mL (<4.55); TROPONIN I 0.019 ng/mL
[2019-09-24 06:27] LABS: ABSOLUTE BASOPHILS # (AUTO) 0.1 10^3/uL (0.0-0.2); ABSOLUTE EOSINOPHILS # (AUTO) 0.2 10^3/uL (0.0-0.6); ABSOLUTE LYMPHOCYTES (AUTO) 2.1 10^3/uL (0.5-4.7); ABSOLUTE MONOCYTES (AUTO) 0.8 10^3/uL (0.1-1.4); ABSOLUTE NEUT (AUTO) 3.9 10^3/uL (1.7-8.2); EOSINOPHILS % (AUTO) 2.3 % (0-6); HEMATOCRIT 42.1 % (36.0-47.0); HEMOGLOBIN 14.3 g/dL (12.0-15.5); LYMPHOCYTES % (AUTO) 29.9 % (13-45); MEAN CORPUSCULAR HEMOGLOBIN 31.5 pg (27.0-33.4); MEAN CORPUSCULAR HGB CONC 33.9 g/dL (32.0-36.0); MEAN CORPUSCULAR VOLUME 93 fl (80-97); MONOCYTES % (AUTO) 11.4 % (3-13); PLATELET COUNT 259 10^3/uL (150-450); RED BLOOD COUNT 4.53 10^6/uL (3.72-5.28); RED CELL DISTRIBUTION WIDTH 13.5 % (11.5-14.0); SEGMENTED NEUTROPHILS % (AUTO) 55.4 % (42-78); TOTAL CELLS COUNTED % (AUTO) 100 %
[2019-09-24 06:42] LABS: ALBUMIN 3.8 g/dL (3.5-5.0); ALKALINE PHOSPHATASE 75 U/L (38-126); ANION GAP 8 (5-19); ASPARTATE AMINO TRANSFERASE 30 U/L (14-36); BILIRUBIN,DIRECT 0.2 mg/dL (0.0-0.4); BLOOD UREA NITROGEN 22 mg/dL (7-20); CALCIUM 9.3 mg/dL (8.4-10.2); CARBON DIOXIDE 25 mmol/L (22-30); CHLORIDE 104 mmol/L (98-107); GLUCOSE 87 mg/dL (75-110); POTASSIUM 4.5 mmol/L (3.6-5.0); TOTAL PROTEIN 6.8 g/dL (6.3-8.2)
[2019-09-24] MEDS: ENOXAPARIN SODIUM INJ 40 MG/0.4 ML DISP.SYRIN SUBCUT SCH (09:12)
[2019-09-24] MEDS: FUROSEMIDE 20 MG TABLET PO SCH (09:13)
[2019-09-24] MEDS: LISINOPRIL 5 MG TABLET PO SCH ×2 (09:14→22:10)
[2019-09-24] MEDS: METOPROLOL SUCCINATE 25 MG TAB.SR.24H PO SCH ×2 (09:14→22:09)
--- NOTE | 2019-09-24 09:36 | PDOC PROGRESS REPORT ---
Subjective Progress Note for:: 09/24/19 Subjective:: Patient is feeling much better Discussed with the Dr. MIJARES and suggest patient have a heart failure he will arrange for the echocardiogram and further evaluations currently continues the medications Patient's denied any chest pain no short of breath Reason For Visit: TACHYCARDIA Physical Exam Vital Signs: Temp Pulse Resp BP Pulse Ox 97.5 F 104 H 16 114/73 96 09/24/19 07:29 09/24/19 07:29 09/24/19 07:29 09/24/19 07:29 09/24/19 07:29 Intake & Output 09/23/19 09/24/19 09/25/19 06:59 06:59 06:59 Intake Total 520 Output Total 1000 Balance -480 Weight 99.79 kg 98 kg General appearance: PRESENT: no acute distress, well-developed, well-nourished Head exam: PRESENT: atraumatic, normocephalic Eye exam: PRESENT: conjunctiva pink, EOMI, PERRLA. ABSENT: scleral icterus Ear exam: PRESENT: normal external ear exam Mouth exam: PRESENT: moist, tongue midline Neck exam: PRESENT: full ROM. ABSENT: carotid bruit, JVD, lymphadenopathy, thyromegaly Respiratory exam: PRESENT: clear to auscultation khanh Cardiovascular exam: PRESENT: RRR. ABSENT: diastolic murmur, rubs, systolic murmur Pulses: PRESENT: normal dorsalis pedis pul, +2 pedal pulses bilateral Vascular exam: PRESENT: normal capillary refill GI/Abdominal exam: PRESENT: normal bowel sounds, soft. ABSENT: distended, guarding, mass, organolmegaly, rebound, tenderness Rectal exam: PRESENT: deferred Musculoskeletal exam: PRESENT: ambulatory Neurological exam: PRESENT: alert, awake, oriented to person, oriented to place, oriented to time, oriented to situation, CN II-XII grossly intact. ABSENT: motor sensory deficit Psychiatric exam: PRESENT: appropriate affect, normal mood. ABSENT: homicidal ideation, suicidal ideation Skin exam: PRESENT: dry, intact, warm. ABSENT: cyanosis, rash Results Laboratory Results: 09/24/19 05:53 09/24/19 05:53 09/23/19 09/23/19 09/24/19 08:00 08:00 05:53 WBC 7.0 RBC 4.53 Hgb 14.3 Hct 42.1 MCV 93 MCH 31.5 MCHC 33.9 RDW 13.5 Plt Count 259 Seg Neutrophils % 55.4 Sodium 137.8 Potassium 4.0 Chloride 104 Carbon Dioxide 27 Anion Gap 7 BUN 20 Creatinine 0.52 Est GFR ( Amer) > 60 Glucose 98 Calcium 9.3 Total Bilirubin AST Alkaline Phosphatase Total Protein Albumin TSH 2.41 09/24/19 05:53 WBC RBC Hgb Hct MCV MCH MCHC RDW Plt Count Seg Neutrophils % Sodium 137.3 Potassium 4.5 Chloride 104 Carbon Dioxide 25 Anion Gap 8 BUN 22 H Creatinine 0.60 Est GFR ( Amer) > 60 Glucose 87 Calcium 9.3 Total Bilirubin 1.0 AST 30 Alkaline Phosphatase 75 Total Protein 6.8 Albumin 3.8 TSH 09/22/19 09/22/19 09/23/19 22:25 22:25 05:08 Creatine Kinase CK-MB (CK-2) Troponin I 0.028 0.032 NT-Pro-B Natriuret Pep 1710 H 09/23/19 09/23/19 09/23/19 08:00 09:43 09:43 Creatine Kinase 63 CK-MB (CK-2) 0.94 Troponin I 0.030 0.023 NT-Pro-B Natriuret Pep 09/23/19 09/23/19 09/23/19 14:30 14:30 21:36 Creatine Kinase 57 45 CK-MB (CK-2) 1.13 Troponin I 0.024 NT-Pro-B Natriuret Pep 09/23/19 09/24/19 21:36 05:53 Creatine Kinase CK-MB (CK-2) 0.87 Troponin I 0.019 NT-Pro-B Natriuret Pep 984 H Impressions: Chest X-Ray 09/22/19 22:12 IMPRESSION: Mild interstitial markings. Differential diagnosis includes pulmonary edema, atypical pneumonitis, and chronic interstitial lung disease. Small bibasilar atelectasis or scar. Assessment & Plan - Diagnosis (1) Congestive heart failure Qualifiers: Heart failure type: unspecified Heart failure chronicity: acute Qualified Code(s): I50.9 - Heart failure, unspecified Is this a current diagnosis for this admission?: Yes Plan: Continues to Lasix follow-up with the Dr. Iyer With the chest x-ray in the morning (2) Tachycardia with heart rate 121-140 beats per minute Is this a current diagnosis for this admission?: Yes Plan: Currently on a beta-carlo. Digoxin's (3) Generalized anxiety disorder Is this a current diagnosis for this admission?: Yes Plan: Currently all stable (4) Elevated brain natriuretic peptide (BNP) level Is this a current diagnosis for this admission?: Yes Plan: Due to the above conditions (5) Pulmonary vascular congestion Is this a current diagnosis for this admission?: Yes Plan: Currently resolved due to the heart failure - Time Time Spent with patient: 15-24 minutes Level of Care: TELE Medications reviewed and adjusted accordingly: Yes Anticipated discharge: Home Within: Other - Plan Summary Plan Summary: Continue his current medications follow-up with the cardiology discussed with the patient about all the plans
--- NOTE | 2019-09-24 20:20 | EKG REPORT ---
SEVERITY:- ABNORMAL ECG - SINUS TACHYCARDIA LEFT ATRIAL ABNORMALITY LEFT AXIS DEVIATION LEFT VENTRICULAR HYPERTROPHY CONSIDER ANTERIOR INFARCT : Confirmed by: Evens Foreman MD 24-Sep-2019 20:18:40
--- NOTE | 2019-09-24 20:36 | Progress Note ---
Provider Note Provider Note: The left ventricle is mildly dilated. There is normal left ventricular wall thickness. LV EF is 30% to 35% Left ventricular systolic function is moderate to severely reduced. Doppler measurements suggest impaired left ventricular relaxation, which is associated with grade I/IV or mild diastolic dysfunction By tissue dopplers. There is moderate to severe global hypokinesis of the left ventricle. There is no thrombus. Cannot assess VSD,ASD , or PFO. The right ventricle is normal size. The right ventricular systolic function is mildly reduced. The right atrium is normal in size The left atrial size is normal. There is no evidence of mitral valve prolapse. There is no vegetation seen on the mitral valve. There is no mitral valve stenosis. There is a mild amount of mitral regurgitation There is no aortic valvular vegetation. There is no aortic valve stenosis There is no LVOT obstruction. There is a trace amount of aortic regurgitation There is no tricuspid stenosis. There is a mild amount of tricuspid regurgitation There is mild pulmonary hypertension by echo RVSP is 42 to 47 mm of Hg , with RA mean of 5 to 10. There is no pulmonic valvular stenosis. There is a trace amount of pulmonic regurgitation The aortic root is normal size. The inferior vena cava appeared normal and decreased > 50% with respiration (RAP 5-10 mmHg) There is no pericardial effusion.
[2019-09-25 05:39] LABS: ABSOLUTE BASOPHILS # (AUTO) 0.1 10^3/uL (0.0-0.2); ABSOLUTE EOSINOPHILS # (AUTO) 0.2 10^3/uL (0.0-0.6); ABSOLUTE LYMPHOCYTES (AUTO) 2.3 10^3/uL (0.5-4.7); ABSOLUTE MONOCYTES (AUTO) 0.8 10^3/uL (0.1-1.4); ABSOLUTE NEUT (AUTO) 3.8 10^3/uL (1.7-8.2); BASOPHILS % (AUTO) 0.8 % (0-2); EOSINOPHILS % (AUTO) 2.2 % (0-6); HEMATOCRIT 41.4 % (36.0-47.0); HEMOGLOBIN 14.4 g/dL (12.0-15.5); LYMPHOCYTES % (AUTO) 32.4 % (13-45); MEAN CORPUSCULAR HEMOGLOBIN 32.3 pg (27.0-33.4); MEAN CORPUSCULAR HGB CONC 34.7 g/dL (32.0-36.0); MEAN CORPUSCULAR VOLUME 93 fl (80-97); MONOCYTES % (AUTO) 11.4 % (3-13); PLATELET COUNT 254 10^3/uL (150-450); RED BLOOD COUNT 4.45 10^6/uL (3.72-5.28); RED CELL DISTRIBUTION WIDTH 13.4 % (11.5-14.0); SEGMENTED NEUTROPHILS % (AUTO) 53.2 % (42-78); TOTAL CELLS COUNTED % (AUTO) 100 %; WHITE BLOOD COUNT 7.1 10^3/uL (4.0-10.5)
[2019-09-25] MEDS: METOPROLOL SUCCINATE 25 MG TAB.SR.24H PO SCH (12:50)
[2019-09-25] MEDS: FUROSEMIDE 20 MG TABLET PO SCH (12:50)
[2019-09-25] MEDS: LISINOPRIL 5 MG TABLET PO SCH ×2 (12:50→21:46)
[2019-09-25] MEDS: ENOXAPARIN SODIUM INJ 40 MG/0.4 ML DISP.SYRIN SUBCUT SCH (12:55)
--- NOTE | 2019-09-25 13:11 | XCELERA REPORT ---
[address] [address] Transthoracic Echocardiogram Report Name: SORAYA BAPTISTE Age: 49 yrs Gender: Female : 1970 Patient Status: Inpatient Patient Location: [address] [place] [address] Study Date: 09/24/2019 12:34 PM Height: 70 in Weight: 216 lb BSA: 2.2 m2 Procedure: A two-dimensional transthoracic echocardiogram with color flow and Doppler was performed. Study Quality: Fair. Reason For Study: CHF History: CHF. Ordering Physician: HUONG WALTERS Performed By: Rochelle Degroot Interpretation Summary The left ventricle is mildly dilated. There is normal left ventricular wall thickness. LV EF is 30% to 35% Left ventricular systolic function is moderate to severely reduced. Doppler measurements suggest impaired left ventricular relaxation, which is associated with grade I/IV or mild diastolic dysfunction By tissue dopplers. There is moderate to severe global hypokinesis of the left ventricle. There is no thrombus. Cannot assess VSD,ASD , or PFO. The right ventricle is normal size. The right ventricular systolic function is mildly reduced. The right atrium is normal in size The left atrial size is normal. There is no evidence of mitral valve prolapse. There is no vegetation seen on the mitral valve. There is no mitral valve stenosis. There is a mild amount of mitral regurgitation There is no aortic valvular vegetation. There is no aortic valve stenosis There is no LVOT obstruction. There is a trace amount of aortic regurgitation There is no tricuspid stenosis. There is a mild amount of tricuspid regurgitation There is mild pulmonary hypertension by echo RVSP is 42 to 47 mm of Hg , with RA mean of 5 to 10. There is no pulmonic valvular stenosis. There is a trace amount of pulmonic regurgitation The aortic root is normal size. The inferior vena cava appeared normal and decreased > 50% with respiration (RAP 5-10 mmHg) There is no pericardial effusion. MMode/2D Measurements & Calculations RVDd: 2.6 cm LVIDd: 5.9 cm FS: 14.3 % Ao root diam: 2.6 cm IVSd: 0.95 cm LVIDs: 5.0 cm EDV(Teich): 172.7 ml Ao root area: 5.1 cm2 LVPWd: 0.96 cm ESV(Teich): 120.9 ml LA dimension: 3.2 cm EF(Teich): 30.0 % Doppler Measurements & Calculations MV E max kody: MV P1/2t max kody: Ao V2 max: LV V1 max P.2 cm/sec 136.7 cm/sec 155.8 cm/sec 3.6 mmHg MV P1/2t: 30.4 msec Ao max PG: LV V1 max: MVA(P1/2t): 7.2 cm2 9.7 mmHg 94.3 cm/sec MV dec slope: 1316 cm/sec2 MV dec time: 0.10 sec PA V2 max: PI end-d kody: TR max kody: MV P1/2t-pr_phl: 56.8 cm/sec 190.0 cm/sec 304.1 cm/sec 30.4 msec PA max P.3 mmHg TR max P.0 mmHg Left Ventricle The left ventricle is mildly dilated. There is normal left ventricular wall thickness. LV EF is 30% to 35%. Left ventricular systolic function is moderate to severely reduced. Doppler measurements suggest impaired left ventricular relaxation, which is associated with grade I/IV or mild diastolic dysfunction. By tissue dopplers. There is moderate to severe global hypokinesis of the left ventricle. There is no thrombus. Cannot assess VSD,ASD , or PFO. Right Ventricle The right ventricle is normal size. The right ventricular systolic function is mildly reduced. Atria The right atrium is normal in size. The left atrial size is normal. Mitral Valve There is no evidence of mitral valve prolapse. There is no vegetation seen on the mitral valve. There is no mitral valve stenosis. There is a mild amount of mitral regurgitation. Aortic Valve There is no aortic valvular vegetation. There is no aortic valve stenosis. There is no LVOT obstruction. There is a trace amount of aortic regurgitation. Tricuspid Valve There is no tricuspid stenosis. There is a mild amount of tricuspid regurgitation. There is mild pulmonary hypertension by echo. RVSP is 42 to 47 mm of Hg , with RA mean of 5 to 10. Pulmonic Valve There is no pulmonic valvular stenosis. There is a trace amount of pulmonic regurgitation. Great Vessels The aortic root is normal size. The inferior vena cava appeared normal and decreased > 50% with respiration (RAP 5-10 mmHg). Effusions There is no pericardial effusion. : HUONG WALTERS Lakshmi
[2019-09-25] MEDS ORDERED: METOPROLOL SUCCINATE 25 MG TAB.SR.24H PO ONE (13:30)
[2019-09-25] MEDS ORDERED: SPIRONOLACTONE 25 MG TABLET PO ONE (13:30)
--- NOTE | 2019-09-25 15:04 | Progress Note ---
Provider Note Provider Note: CARDIOLOGY PROGRESS NOTE by Dr. Huong Iyer on 09/25/2019. SUBJECTIVE: The patient states last night she had some cough when she laid down which seems to be like a PND equal. She denies any chest pain. She still is tachycardic with a heart rate 10 6-1 10. So far no PVCs have been seen. The patient does complain of palpitations. She does not have any orthopnea or leg edema. There is no chest pain or discomfort. There is no dizziness near syncope or syncope. She states she has shortness of breath with more than mild exertion. Hence she is in [place] heart failure classification class III. There is no rest shortness of breath. On examination the patient is mildly obese. In no acute distress. Selected Entries 09/25/19 12:00 Temperature 98.0 F Temperature Oral Source Pulse Rate 113 H Respiratory 18 Rate Blood Pressure 130/86 H [Right Upper Arm] Blood Pressure 100 Mean [Right Upper Arm] Blood Pressure Sitting Position [Right Upper Arm] O2 Sat by Pulse 98 Oximetry Oxygen Delivery Room Air Method ( includes room air) HEAD: Is atraumatic normocephalic. EYES: Pupils are equal round regular reactive light accommodation. Extraocular movements are normal. There is no conjunctival pallor. There is no scleral icterus. EARS: Tympanic membranes are intact. Externally external auditory canals are clear. NOSE: There is no deviated nasal septum. There is no inflammation nasal mucous membrane. MOUTH: Mucous membranes of the mouth are moist. There is no ulcers. There is no bleeding from the gums. THROAT: There is no redness of the oropharynx. There is no exudates. SKIN: There is no skin rashes. There is no petechia or ecchymosis. There is no skin lesions. NECK: Supple. There is no definite JVD. Carotids are equal there is no bruit there is no lymphadenopathy. There is no accessory muscles of respiration use. There is no goiter. LUNGS: Clear to auscultation percussion without any rhonchi rales or wheezing. HEART: On examination S1-S2 is heard normally. There is no S3 gallop. There is no S4 gallop. There is sinus tachycardia. There is . There is systolic murmur left sternal border and the apex. There is no rub. ABDOMEN: Is mildly obese. Nontender. There is no hepatosplenomegaly. Bowel sounds are well heard. EXTREMITIES: Femorals are slightly deep. There is no femoral bruits. Leg pulses are well felt. There is no pedal edema. There is no DVT/cellulitis. There is no cyanosis or clubbing. There is no calf tenderness. BOOKING AGENT: The patient is conscious awake alert oriented x3 with no focal deficits. PSYCHIATRIC: The patient judgment and insight are intact her affect is normal. The patient's 24-hour intake has been 1180 mL. Output is 700 mL. Labs- All tests 24 hr 09/25/19 05:15 WBC 7.1 RBC 4.45 Hgb 14.4 Hct 41.4 MCV 93 MCH 32.3 MCHC 34.7 RDW 13.4 Plt Count 254 Lymph % (Auto) 32.4 [place] % (Auto) 11.4 Eos % (Auto) 2.2 Baso % (Auto) 0.8 Absolute Neuts (auto) 3.8 Absolute Lymphs (auto) 2.3 Absolute Monos (auto) 0.8 Absolute Eos (auto) 0.2 Absolute Basos (auto) 0.1 Seg Neutrophils % 53.2 Chest X-Ray 09/22/19 22:12 IMPRESSION: Mild interstitial markings. Differential diagnosis includes pulmonary edema, atypical pneumonitis, and chronic interstitial lung disease. Small bibasilar atelectasis or scar. IMPRESSION/RECOMMENDATION: 1. Acute left ventricular systolic heart failure. This is secondary to cardiomyopathy of unknown etiology. We will add spironolactone. Will increase the patient's beta-carlo. Continue the patient on Lasix and CONSTANTIN inhibitor. In view the patient is young age and with a history of complaints of palpitations, would strongly recommend placing the patient on a LifeVest to prevent sudden . Prescription form for LifeVest prescribed and this will be faxed to [facility]. Will check SMA-7 in the a.m. I have again gone over the recommendation that if there is no significant coronary artery disease found by cardiac catheterization. Then the patient will be advised to repeat an echo in 3 months from the prior date of prior echo, and if this is 35% or less ejection fraction then the patient will be recommended to have an AICD placement. [place] heart failure classification is class III.. 2. Cardiomyopathy: With some moderate to severely reduced LV ejection fraction of 30% to 35%. Etiology of this is not clear. But have recommend strongly that the patient cardiac catheterization to rule out coronary artery disease as a cause of the patient's cardiomyopathy. This will be discussed with nurse first assist in [facility]. We will set up the patient to see him as an outpatient for cardiac catheterization. In the meantime will show the patient cardiac catheterization teaching video. 3. History of migraines.: Patient was on amitriptyline which has not been resumed. 4. History of GERD. 5. Multiple CAD risk factors namely age and family history positive for coronary artery disease. Later when the patient stable will get a IV Lexiscan Cardiolite stress test. 5. Lipid status: We will check lipids in the morning. 6. So far there is no evidence of a acute coronary syndrome. The patient troponin I are serially negative Medications reviewed. Medications adjusted. Medical regimen and management plan discussed with the attending provider on the case covering Dr. Horan. Medical decision making is of high complexity. This is in view of the need to adjust the patient's medication dosages. And also expiration of the recommenda tion of cardiac catheterization, and the recommendation for LifeVest to prevent sudden . Discussed this with the patient and patient's family especially the . 40 minutes spent with patient more than 50% time spent in direct patient care. Will follow
--- NOTE | 2019-09-25 16:15 | PDOC PROGRESS REPORT ---
Subjective Progress Note for:: 09/25/19 Subjective:: No chest pain or difficulty with breathing. No leg swelling. Emphasized compliance with fluid and salt restriction during this visit. She denied any fever or chills. Life vest in use at this time. Reason For Visit: TACHYCARDIA Physical Exam Vital Signs: Temp Pulse Resp BP Pulse Ox 98.0 F 113 H 18 130/86 H 98 09/25/19 12:00 09/25/19 12:00 09/25/19 12:00 09/25/19 12:00 09/25/19 12:00 Intake & Output 09/24/19 09/25/19 09/26/19 06:59 06:59 06:59 Intake Total 520 1180 Output Total 1000 700 Balance -480 480 Weight 98 kg 99.7 kg General appearance: PRESENT: no acute distress, obese Head exam: PRESENT: atraumatic, normocephalic Eye exam: PRESENT: conjunctiva pink, EOMI, PERRLA. ABSENT: scleral icterus Ear exam: PRESENT: normal external ear exam Mouth exam: PRESENT: moist, tongue midline Neck exam: PRESENT: full ROM. ABSENT: carotid bruit, JVD, lymphadenopathy, thyromegaly Cardiovascular exam: PRESENT: RRR. ABSENT: diastolic murmur, rubs, systolic murmur Pulses: PRESENT: normal dorsalis pedis pul, +2 pedal pulses bilateral Vascular exam: PRESENT: normal capillary refill GI/Abdominal exam: PRESENT: normal bowel sounds, soft. ABSENT: distended, guarding, mass, organolmegaly, rebound, tenderness Rectal exam: PRESENT: deferred Neurological exam: PRESENT: alert, awake, oriented to person, oriented to place, oriented to time, oriented to situation, CN II-XII grossly intact. ABSENT: motor sensory deficit Psychiatric exam: PRESENT: appropriate affect, normal mood. ABSENT: homicidal ideation, suicidal ideation Skin exam: PRESENT: dry, intact, warm. ABSENT: cyanosis, rash Results Laboratory Results: 09/25/19 05:15 09/24/19 05:53 09/25/19 05:15 WBC 7.1 RBC 4.45 Hgb 14.4 Hct 41.4 MCV 93 MCH 32.3 MCHC 34.7 RDW 13.4 Plt Count 254 Seg Neutrophils % 53.2 09/22/19 09/22/19 09/23/19 22:25 22:25 05:08 Creatine Kinase CK-MB (CK-2) Troponin I 0.028 0.032 NT-Pro-B Natriuret Pep 1710 H 09/23/19 09/23/19 09/23/19 08:00 09:43 09:43 Creatine Kinase 63 CK-MB (CK-2) 0.94 Troponin I 0.030 0.023 NT-Pro-B Natriuret Pep 09/23/19 09/23/19 09/23/19 14:30 14:30 21:36 Creatine Kinase 57 45 CK-MB (CK-2) 1.13 Troponin I 0.024 NT-Pro-B Natriuret Pep 09/23/19 09/24/19 21:36 05:53 Creatine Kinase CK-MB (CK-2) 0.87 Troponin I 0.019 NT-Pro-B Natriuret Pep 984 H Impressions: Chest X-Ray 09/22/19 22:12 IMPRESSION: Mild interstitial markings. Differential diagnosis includes pulmonary edema, atypical pneumonitis, and chronic interstitial lung disease. Small bibasilar atelectasis or scar. Assessment & Plan - Diagnosis (1) Acute systolic (congestive) heart failure Is this a current diagnosis for this admission?: Yes Plan: Continue evidence based anti CHF medication management. Follow up on recommended cardiac evaluation. Cardiology input appreciated. (2) Cardiomyopathy Qualifiers: Cardiomyopathy type: unspecified Qualified Code(s): I42.9 - Cardiomyopathy, unspecified Is this a current diagnosis for this admission?: Yes Plan: Continue current medication management and Life vest monitoring. (3) Obesity, Class I, BMI 30-34.9 Is this a current diagnosis for this admission?: Yes Plan: Emphasized calorie restriction and walking exercise for weight management. (4) Generalized anxiety disorder Is this a current diagnosis for this admission?: Yes Plan: Continue supportive care. - Time Time Spent with patient: 25-34 minutes Level of Care: TELE Medications reviewed and adjusted accordingly: Yes Anticipated discharge: Home with Homehealth Within: Other - Inpatient Certification Based on my medical assessment, after consideration of the patient's comorbidities, presenting symptoms, or acuity I expect that the services needed warrant INPATIENT care.: Yes I certify that my determination is in accordance with my understanding of Medicare's requirements for reasonable and necessary INPATIENT services [42 CFR 412.3e].: Yes Medical Necessity: Significant Comorbidiites Make Outpatient Treatment Too Risky, Need Close Monitoring Due to Risk of Patient Decompensation, Need For Continuous Telemetry Monitoring, Risk of Complication if Not Cared For in Hospital, Risk of Diagnosis Which Will Require Inpatient Eval/Care/Monitoring Post Hospital Care: D/C Parachute Harness Rigger Documentation - Plan Summary Plan Summary: Continue current medication management.
[2019-09-25] MEDS: SPIRONOLACTONE 25 MG TABLET PO SCH (21:46)
[2019-09-25] MEDS: METOPROLOL SUCCINATE 50 MG TAB.SR.24H PO SCH (21:46)
[2019-09-25] MEDS ORDERED: METOPROLOL SUCCINATE 25 MG TAB.SR.24H PO SCH (22:00)
[2019-09-26 05:10] LABS: ABSOLUTE BASOPHILS # (AUTO) 0.1 10^3/uL (0.0-0.2); ABSOLUTE EOSINOPHILS # (AUTO) 0.2 10^3/uL (0.0-0.6); ABSOLUTE LYMPHOCYTES (AUTO) 2.4 10^3/uL (0.5-4.7); ABSOLUTE MONOCYTES (AUTO) 0.9 10^3/uL (0.1-1.4); ABSOLUTE NEUT (AUTO) 4.5 10^3/uL (1.7-8.2); EOSINOPHILS % (AUTO) 2.3 % (0-6); HEMOGLOBIN 14.7 g/dL (12.0-15.5); LYMPHOCYTES % (AUTO) 30.1 % (13-45); MEAN CORPUSCULAR HEMOGLOBIN 31.6 pg (27.0-33.4); MEAN CORPUSCULAR HGB CONC 34.2 g/dL (32.0-36.0); MEAN CORPUSCULAR VOLUME 92 fl (80-97); MONOCYTES % (AUTO) 11.2 % (3-13); PLATELET COUNT 282 10^3/uL (150-450); RED BLOOD COUNT 4.65 10^6/uL (3.72-5.28); RED CELL DISTRIBUTION WIDTH 13.4 % (11.5-14.0); SEGMENTED NEUTROPHILS % (AUTO) 55.4 % (42-78); TOTAL CELLS COUNTED % (AUTO) 100 %; WHITE BLOOD COUNT 8.1 10^3/uL (4.0-10.5)
[2019-09-26 05:32] LABS: ALKALINE PHOSPHATASE 80 U/L (38-126); ANION GAP 8 (5-19); ASPARTATE AMINO TRANSFERASE 28 U/L (14-36); BILIRUBIN,DIRECT 0.2 mg/dL (0.0-0.4); BLOOD UREA NITROGEN 20 mg/dL (7-20); CALCIUM 9.6 mg/dL (8.4-10.2); CARBON DIOXIDE 26 mmol/L (22-30); CHLORIDE 102 mmol/L (98-107); CHOLESTEROL 224.32 mg/dL (0-200); GLUCOSE 94 mg/dL (75-110); TOTAL PROTEIN 7.1 g/dL (6.3-8.2); TRIGLYCERIDES 150 mg/dL (<150)
[2019-09-26 05:43] LABS: DIRECT LDL 150 mg/dL (<100)
[2019-09-26] MEDS: ENOXAPARIN SODIUM INJ 40 MG/0.4 ML DISP.SYRIN SUBCUT SCH (10:29)
[2019-09-26] MEDS: SPIRONOLACTONE 25 MG TABLET PO SCH ×2 (10:30→21:20)
[2019-09-26] MEDS: METOPROLOL SUCCINATE 50 MG TAB.SR.24H PO SCH ×2 (10:30→21:20)
[2019-09-26] MEDS: FUROSEMIDE 20 MG TABLET PO SCH (10:30)
[2019-09-26] MEDS: LISINOPRIL 5 MG TABLET PO SCH ×2 (10:30→21:19)
--- NOTE | 2019-09-26 14:42 | Progress Note ---
Provider Note Provider Note: CARDIOLOGY PROGRESS NOTE by Dr. Huong Iyer on 09/26/2019. SUBJECTIVE: The patient has no shortness of breath at rest. But with minimal activity she gets short of breath. There is no arrhythmia seen on the monitor although the patient does have palpitations off and on. The patient denies any chest pain discomfort. There is no PND orthopnea. There is no leg edema. There is no TIA CVA symptoms. There is no atrial or ventricular arrhythmia seen on the monitor. Patient denies any dizziness or near syncope syncope. PHYSICAL EXAMINATION: The patient is mildly obese. At present in no acute distress at rest. Selected Entries 09/26/19 09/26/19 07:00 08:00 Temperature 97.3 F Temperature Oral Source Pulse Rate 88 Respiratory 18 Rate Blood Pressure 103/65 [Right Upper Arm] Blood Pressure 77 Mean [Right Upper Arm] Blood Pressure Sitting Position [Right Upper Arm] O2 Sat by Pulse 100 Oximetry Oxygen Delivery Room Air Method ( includes room air) HEAD: Is atraumatic normocephalic. EYES: Pupils are equal round regular reactive light accommodation. Extraocular movements are normal. There is no conjunctival pallor. There is no scleral icterus. EARS: Tympanic membranes are intact. Externally external auditory canals are clear. NOSE: There is no deviated nasal septum. There is no inflammation nasal mucous membrane. MOUTH: Mucous membranes of the mouth are moist. There is no ulcers. There is no bleeding from the gums. THROAT: There is no redness of the oropharynx. There is no exudates. SKIN: There is no skin rashes. There is no petechia or ecchymosis. There is no skin lesions. NECK: Supple. There is no definite JVD. Carotids are equal there is no bruit there is no lymphadenopathy. There is no accessory muscles of respiration use. There is no goiter. LUNGS: Clear to auscultation percussion without any rhonchi rales or wheezing. HEART: On examination S1-S2 is heard normally. There is no S3 gallop. There is no S4 gallop. There is sinus tachycardia. There is . There is systolic murmur left sternal border and the apex. There is no rub. ABDOMEN: Is mildly obese. Nontender. There is no hepatosplenomegaly. Bowel sounds are well heard. EXTREMITIES: Femorals are slightly deep. There is no femoral bruits. Leg pulses are well felt. There is no pedal edema. There is no DVT/cellulitis. There is no cyanosis or clubbing. There is no calf tenderness. POWERTRAIN DESIGN ENGINEER: The patient is conscious awake alert oriented x3 with no focal deficits. PSYCHIATRIC: The patient judgment and insight are intact her affect is normal. The patient's 24-hour intake has been 1240 mL. Output is 1400 mL. Labs- All tests 24 hr 09/26/19 09/26/19 04:41 04:41 WBC 8.1 RBC 4.65 Hgb 14.7 Hct 43.0 MCV 92 MCH 31.6 MCHC 34.2 RDW 13.4 Plt Count 282 Lymph % (Auto) 30.1 [place] % (Auto) 11.2 Eos % (Auto) 2.3 Baso % (Auto) 1.0 Absolute Neuts (auto) 4.5 Absolute Lymphs (auto) 2.4 Absolute Monos (auto) 0.9 Absolute Eos (auto) 0.2 Absolute Basos (auto) 0.1 Seg Neutrophils % 55.4 Sodium 136.4 L Potassium 5.0 Chloride 102 Carbon Dioxide 26 Anion Gap 8 BUN 20 Creatinine 0.61 Est GFR ( Amer) > 60 Est GFR (MDRD) Non-Af > 60 Glucose 94 Calcium 9.6 Magnesium 2.1 Total Bilirubin 1.0 Direct Bilirubin 0.2 Neonat Total Bilirubin Not Reportable Neonat Direct Bilirubin Not Reportable Neonat Indirect Bili Not Reportable AST 28 ALT 41 H Alkaline Phosphatase 80 Total Protein 7.1 Albumin 4.0 Triglycerides 150 Cholesterol 224.32 H LDL Cholesterol Direct 150 H VLDL Cholesterol 30.0 HDL Cholesterol 53 Chest X-Ray 09/22/19 22:12 IMPRESSION: Mild interstitial markings. Differential diagnosis includes pulmonary edema, atypical pneumonitis, and chronic interstitial lung disease. Small bibasilar atelectasis or scar. IMPRESSION/RECOMMENDATION: 1. Acute left ventricular systolic heart failure. This is secondary to cardiomyopathy of unknown etiology. We will add spironolactone. Will increase the patient's beta-carlo. Continue the patient on Lasix and CONSTANTIN inhibitor. In view the patient is young age and with a history of complaints of palpitations, would strongly recommend placing the patient on a LifeVest to prevent sudden . Prescription form for LifeVest prescribed and this will be faxed to [facility]. Will check SMA-7 in the a.m. I have again gone over the recommendation that if there is no significant coronary artery disease found by cardiac catheterization. Then the patient will be advised to repeat an echo in 3 months from the prior date of prior echo, and if this is 35% or less ejection fraction then the patient will be recommended to have an AICD placement. Will repeat chest x-ray in a.m. Await LifeVest. 2. Cardiomyopathy: With some moderate to severely reduced LV ejection fraction of 30% to 35%. Etiology of this is not clear. But have recommend strongly that the patient cardiac catheterization to rule out coronary artery disease as a cause of the patient's cardiomyopathy. This will be discussed with blue print control clerk in [facility] ([place] We will set up the patient to see him as an outpatient for cardiac catheterization. In the meantime will show the patient cardiac catheterization teaching video. 3. History of migraines.: Patient was on amitriptyline which has not been resumed. 4. History of GERD. 5. Multiple CAD risk factors namely age and family history positive for coronary artery disease. Later when the patient stable will get a IV Lexiscan Cardiolite stress test. 5. Hyperlipidemia. The patient's HDL is good at 53, her LDL is elevated at 150. Her triglycerides are normal. Discussed the need to bring the LDL below 100 with the patient. Will get dietary consult prior to instituting any medication/anti-statins for now.. 6. So far there is no evidence of a acute coronary syndrome. The patient troponin I are serially negative 7.[place] heart failure classification is class III. Medications reviewed. Medications adjusted. Medical regimen and management plan discussed with the attending provider on the case covering Dr. Horan. Medical decision making is of high complexity. This is in view of the need to adjust the patient's medication dosages. And also expiration of the recommendation of cardiac catheterization, and the recommendation for LifeVest to prevent sudden . Discussed this with the patient and patient's family especially the . 40 minutes spent with patient more than 50% time spent in direct patient care. Will follow
--- NOTE | 2019-09-26 15:33 | RADIOLOGY REPORT (SQ) ---
EXAM DESCRIPTION: CHEST SINGLE VIEW COMPLETED DATE/TIME: 09/26/2019 3:25 pm REASON FOR STUDY: chf COMPARISON: 09/22/2019. NUMBER OF VIEWS: One view. TECHNIQUE: Single frontal radiographic view of the chest acquired. LIMITATIONS: None. FINDINGS: LUNGS AND PLEURA: Interstitial opacities have largely cleared when compared to the prior. Minimal Kellee B-lines persist but no pleural effusion. No abnormal pulmonary opacity otherwise. MEDIASTINUM AND HILAR STRUCTURES: No masses. Contour normal. HEART AND VASCULAR STRUCTURES: Stable cardiomegaly. BONES: No acute findings. HARDWARE: None in the chest. OTHER: No other significant finding. IMPRESSION: Improved. Minimal persistent interstitial changes. TECHNICAL DOCUMENTATION: JOB ID: [id number] 2010 [employer]- All Rights Reserved Reading location - IP/workstation name: [email or web address]
--- NOTE | 2019-09-26 18:59 | PDOC PROGRESS REPORT ---
Subjective Progress Note for:: 09/26/19 Subjective:: Patient denied chest pain or difficulty with breathing. No leg swelling. No abdominal pain, nausea, ort vomiting. Expressed commitment to her treatment. Father at bedside during my visit today. Reason For Visit: TACHYCARDIA Physical Exam Vital Signs: Temp Pulse Resp BP Pulse Ox 97.3 F 101 H 18 103/65 100 09/26/19 08:00 09/26/19 08:00 09/26/19 08:00 09/26/19 08:00 09/26/19 08:00 Intake & Output 09/25/19 09/26/19 09/27/19 06:59 06:59 06:59 Intake Total 1180 1240 Output Total 700 1400 Balance 480 -160 Weight 99.7 kg 98.5 kg Physical Exam: General appearance: PRESENT: no acute distress, obese Head exam: PRESENT: atraumatic, normocephalic Eye exam: PRESENT: conjunctiva pink, EOMI, PERRLA. ABSENT: pallor, scleral icterus Ear exam: PRESENT: normal external ear exam Mouth exam: PRESENT: moist, tongue midline Neck exam: PRESENT: full ROM. ABSENT: carotid bruit, JVD, lymphadenopathy, thyromegaly Cardiovascular exam: PRESENT: RRR. S1, S2, Grade 3/6 systolic murmur at LLSB ABSENT: diastolic murmur, rubs Pulses: PRESENT: normal dorsalis pedis pul, +2 pedal pulses bilateral Vascular exam: PRESENT: normal capillary refill GI/Abdominal exam: PRESENT: normal bowel sounds, soft. ABSENT: distended, guarding, mass, organolmegaly, rebound, tenderness Rectal exam: PRESENT: deferred Neurological exam: PRESENT: alert, awake, oriented to person, oriented to place, oriented to time, oriented to situation, CN II-XII grossly intact. ABSENT: motor sensory deficit Psychiatric exam: PRESENT: appropriate affect, normal mood. ABSENT: homicidal ideation, suicidal ideation Skin exam: PRESENT: dry, intact, warm. ABSENT: cyanosis, rash Results Laboratory Results: 09/26/19 04:41 09/26/19 04:41 09/26/19 09/26/19 04:41 04:41 WBC 8.1 RBC 4.65 Hgb 14.7 Hct 43.0 MCV 92 MCH 31.6 MCHC 34.2 RDW 13.4 Plt Count 282 Seg Neutrophils % 55.4 Sodium 136.4 L Potassium 5.0 Chloride 102 Carbon Dioxide 26 Anion Gap 8 BUN 20 Creatinine 0.61 Est GFR ( Amer) > 60 Glucose 94 Calcium 9.6 Magnesium 2.1 Total Bilirubin 1.0 AST 28 Alkaline Phosphatase 80 Total Protein 7.1 Albumin 4.0 Triglycerides 150 Cholesterol 224.32 H LDL Cholesterol Direct 150 H VLDL Cholesterol 30.0 HDL Cholesterol 53 09/22/19 09/22/19 09/23/19 22:25 22:25 05:08 Creatine Kinase CK-MB (CK-2) Troponin I 0.028 0.032 NT-Pro-B Natriuret Pep 1710 H 09/23/19 09/23/19 09/23/19 08:00 09:43 09:43 Creatine Kinase 63 CK-MB (CK-2) 0.94 Troponin I 0.030 0.023 NT-Pro-B Natriuret Pep 09/23/19 09/23/19 09/23/19 14:30 14:30 21:36 Creatine Kinase 57 45 CK-MB (CK-2) 1.13 Troponin I 0.024 NT-Pro-B Natriuret Pep 09/23/19 09/24/19 21:36 05:53 Creatine Kinase CK-MB (CK-2) 0.87 Troponin I 0.019 NT-Pro-B Natriuret Pep 984 H Impressions: Chest X-Ray 09/22/19 22:12 IMPRESSION: Mild interstitial markings. Differential diagnosis includes pulmonary edema, atypical pneumonitis, and chronic interstitial lung disease. Small bibasilar atelectasis or scar. Assessment & Plan - Diagnosis (1) Acute systolic (congestive) heart failure Is this a current diagnosis for this admission?: Yes (2) Cardiomyopathy Qualifiers: Cardiomyopathy type: unspecified Qualified Code(s): I42.9 - Cardiomyopathy, unspecified Is this a current diagnosis for this admission?: Yes (3) Obesity, Class I, BMI 30-34.9 Is this a current diagnosis for this admission?: Yes (4) Generalized anxiety disorder Is this a current diagnosis for this admission?: Yes - Time Time Spent with patient: 25-34 minutes Level of Care: TELE Medications reviewed and adjusted accordingly: Yes Anticipated discharge: Home with Homehealth - for enrollment in CHF program upon discharge. Within: Other - Inpatient Certification Based on my medical assessment, after consideration of the patient's comorbidities, presenting symptoms, or acuity I expect that the services needed warrant INPATIENT care.: Yes I certify that my determination is in accordance with my understanding of Medicare's requirements for reasonable and necessary INPATIENT services [42 CFR 412.3e].: Yes Medical Necessity: Significant Comorbidiites Make Outpatient Treatment Too Risky, Need Close Monitoring Due to Risk of Patient Decompensation, Need For Continuous Telemetry Monitoring, Risk of Complication if Not Cared For in Hospital, Risk of Diagnosis Which Will Require Inpatient Eval/Care/Monitoring Post Hospital Care: D/C Document Control Specialist Documentation - Plan Summary Plan Summary: Continue current medication management. She benefit from enrollment in CHF program upon discharge.
--- NOTE | 2019-09-27 09:46 | PDOC PROGRESS REPORT ---
Subjective Progress Note for:: 09/27/19 Subjective:: Patient is currently doing much better Patient is walking the hallway denied any short of breath No chest pain Chest x-ray is all improving Patient is currently waiting for the LifeVest placement and also scheduled for cardiac cath as outpatients per Dr. Cardenas Reason For Visit: TACHYCARDIA Physical Exam Vital Signs: Temp Pulse Resp BP Pulse Ox 97.6 F 89 16 98/58 L 97 09/27/19 05:01 09/27/19 05:01 09/27/19 05:01 09/27/19 05:01 09/27/19 05:01 Intake & Output 09/26/19 09/27/19 09/28/19 06:59 06:59 06:59 Intake Total 1240 1290 Output Total 1400 Balance -160 1290 Weight 98.5 kg 98 kg General appearance: PRESENT: no acute distress, well-developed, well-nourished Head exam: PRESENT: atraumatic, normocephalic Eye exam: PRESENT: conjunctiva pink, EOMI, PERRLA. ABSENT: scleral icterus Ear exam: PRESENT: normal external ear exam Mouth exam: PRESENT: moist, tongue midline Neck exam: PRESENT: full ROM. ABSENT: carotid bruit, JVD, lymphadenopathy, thyromegaly Respiratory exam: PRESENT: clear to auscultation khanh Cardiovascular exam: PRESENT: RRR. ABSENT: diastolic murmur, rubs, systolic murmur Pulses: PRESENT: normal dorsalis pedis pul, +2 pedal pulses bilateral Vascular exam: PRESENT: normal capillary refill GI/Abdominal exam: PRESENT: normal bowel sounds, soft. ABSENT: distended, guarding, mass, organolmegaly, rebound, tenderness Rectal exam: PRESENT: deferred Musculoskeletal exam: PRESENT: ambulatory Neurological exam: PRESENT: alert, awake, oriented to person, oriented to place, oriented to time, oriented to situation, CN II-XII grossly intact. ABSENT: lorrie r sensory deficit Psychiatric exam: PRESENT: appropriate affect, normal mood. ABSENT: homicidal ideation, suicidal ideation Skin exam: PRESENT: dry, intact, warm. ABSENT: cyanosis, rash Results Laboratory Results: 09/26/19 04:41 09/26/19 04:41 09/22/19 09/22/19 09/23/19 22:25 22:25 05:08 Creatine Kinase CK-MB (CK-2) Troponin I 0.028 0.032 NT-Pro-B Natriuret Pep 1710 H 09/23/19 09/23/19 09/23/19 08:00 09:43 09:43 Creatine Kinase 63 CK-MB (CK-2) 0.94 Troponin I 0.030 0.023 NT-Pro-B Natriuret Pep 09/23/19 09/23/19 09/23/19 14:30 14:30 21:36 Creatine Kinase 57 45 CK-MB (CK-2) 1.13 Troponin I 0.024 NT-Pro-B Natriuret Pep 09/23/19 09/24/19 21:36 05:53 Creatine Kinase CK-MB (CK-2) 0.87 Troponin I 0.019 NT-Pro-B Natriuret Pep 984 H Impressions: Chest X-Ray 09/26/19 00:00 IMPRESSION: Improved. Minimal persistent interstitial changes. Assessment & Plan - Diagnosis (1) Congestive heart failure Qualifiers: Heart failure type: systolic Heart failure chronicity: acute Qualified Code(s): I50.21 - Acute systolic (congestive) heart failure Is this a current diagnosis for this admission?: Yes Plan: Continues to current medical management (2) Tachycardia with heart rate 121-140 beats per minute Is this a current diagnosis for this admission?: Yes Plan: Currently on a beta-carlo. Digoxin's (3) Generalized anxiety disorder Is this a current diagnosis for this admission?: Yes (4) Elevated brain natriuretic peptide (BNP) level Is this a current diagnosis for this admission?: Yes (5) Pulmonary vascular congestion Is this a current diagnosis for this admission?: Yes Plan: resoved - Time Time Spent with patient: 15-24 minutes Level of Care: TELE Medications reviewed and adjusted accordingly: Yes Anticipated discharge: Home Within: Other - Plan Summary Plan Summary: cont curr med
[2019-09-27] MEDS: ENOXAPARIN SODIUM INJ 40 MG/0.4 ML DISP.SYRIN SUBCUT SCH (11:11)
[2019-09-27] MEDS: SPIRONOLACTONE 25 MG TABLET PO SCH (11:12)
[2019-09-27] MEDS: METOPROLOL SUCCINATE 50 MG TAB.SR.24H PO SCH (11:12)
[2019-09-27] MEDS: LISINOPRIL 5 MG TABLET PO SCH (11:12)
[2019-09-27] MEDS: FUROSEMIDE 20 MG TABLET PO SCH (11:12)
--- NOTE | 2019-09-27 15:14 | PDOC DISCHARGE SUMMARY ---
Impression - Admit/DC Date/PCP Admission Date/Primary Care Provider: 09/23/19 08:49 SARY ERIC MD Discharge Date: 09/27/19 - Discharge Diagnosis (1) Congestive heart failure Is this a current diagnosis for this admission?: Yes (2) Tachycardia with heart rate 121-140 beats per minute Is this a current diagnosis for this admission?: Yes (3) Generalized anxiety disorder Is this a current diagnosis for this admission?: Yes (4) Elevated brain natriuretic peptide (BNP) level Is this a current diagnosis for this admission?: Yes (5) Pulmonary vascular congestion Is this a current diagnosis for this admission?: Yes - Additional Information Discharge Diet: Cardiac Discharge Activity: Activity As Tolerated, Balance Activity w/Rest, Weigh Daily Referrals: DORI WALTERS MD [ACTIVE STAFF] - 10/06/19 3:15 pm LOLY AL MD [ACTIVE STAFF] - 10/01/19 8:30 am (WITH TONI MACDONALD) Prescriptions: Spironolactone [Aldactone 25 mg Tablet] 25 mg PO Q12 #60 tablet Furosemide [Lasix 20 mg Tablet] 20 mg PO DAILY #30 tablet Lisinopril [Prinivil 5 mg Tablet] 5 mg PO Q12 #60 tablet Metoprolol Succinate [Toprol Xl 50 mg Tab.sr] 50 mg PO Q12 #60 tab.sr.24h Home Medications: Amitriptyline HCl [Elavil 25 mg Tablet] 37.5 mg PO QHS 09/23/19 Cetirizine HCl [Zyrtec] 10 mg PO DAILY 09/23/19 Eletriptan Hydrobromide [Eletriptan HBr] 40 mg PO DAILYP PRN MDD 80MG 09/23/19 Furosemide [Lasix 20 mg Tablet] 20 mg PO DAILY #30 tablet 09/27/19 Lisinopril [Prinivil 5 mg Tablet] 5 mg PO Q12 #60 tablet 09/27/19 Metoprolol Succinate [Toprol Xl 50 mg Tab.sr] 50 mg PO Q12 #60 tab.sr.24h 09/27/19 Spironolactone [Aldactone 25 mg Tablet] 25 mg PO Q12 #60 tablet 09/27/19 History of Present Illiness History of Present Illness: SORAYA BAPTISTE is a 49 year old female This is a 49-year-old female's with a history of the anxiety disorder recently came to the office last week with the complaining of heart racing's patient have a EKG done was a sinus tachycardia Holter monitor was done with no significant findings and patient's was referred to the cardiology and also order the CT angiograms which is negative for any pulmonary embolisms Patient seen by Dr. MIJARES and start on a beta-carlo but patients did not feel well this morning patients noticed that her heart is racing in the emergency department patient heart rate was 1 20-1 30 range patient was giving the Cardizem IV Patient's NT BNP was elevated patient's chest x-ray shows interstitial edema Is denied any fever no chest pain Is denied any previous heart problems Discussed with the Dr. Waltesr and he will evaluate the patient's and he will order the test but suggest to not order any echo until he see the patient's Hospital Course Hospital Course: This is a 49-year-old female admitting in the hospital following the shortness of the breath pulmonary vascular congestion and patient's was diagnosed with acute systolic heart failureEjection fraction is less than 35%'s Patient seen by Dr. MIJARES start the patient on a Lasix Spironolactone beta- carlo and CONSTANTIN inhibitor's Patient's response very well chest x-ray is also getting clear patient is walking the hallway without any problems Patient is at this point very unclear etiology about the congestive heart failure patient scheduled for the cardiac cath at [place] per Dr. Mijares to rule out any ischemic disease patient is currently denied any chest pain Patient also put on a LifeVest for further evaluations in need of further work- up as outpatient with this unclear etiology Discussed with extensively with the patient about the CHF guidelines diet control and close follow-up Discussed with the cardiology Dr. MIJARES and suggest patient follow-up with him and he already scheduled to start on things including the cardiac cath Physical Exam Vital Signs: Temp Pulse Resp BP Pulse Ox 98.2 F 101 H 18 102/67 99 09/27/19 09:06 09/27/19 09:06 09/27/19 09:06 09/27/19 09:06 09/27/19 09:06 Intake & Output 09/26/19 09/27/19 09/28/19 06:59 06:59 06:59 Intake Total 1240 1290 Output Total 1400 Balance -160 1290 Weight 98.5 kg 98 kg General appearance: PRESENT: no acute distress, well-developed, well-nourished Head exam: PRESENT: atraumatic, normocephalic Eye exam: PRESENT: conjunctiva pink, EOMI, PERRLA. ABSENT: scleral icterus Ear exam: PRESENT: normal external ear exam Mouth exam: PRESENT: moist, tongue midline Neck exam: ABSENT: carotid bruit, JVD, lymphadenopathy, thyromegaly Respiratory exam: PRESENT: clear to auscultation khanh. ABSENT: rales, rhonchi, wheezes Cardiovascular exam: PRESENT: RRR. ABSENT: diastolic murmur, rubs, systolic murmur Pulses: PRESENT: normal dorsalis pedis pul Vascular exam: PRESENT: normal capillary refill GI/Abdominal exam: PRESENT: normal bowel sounds, soft. ABSENT: distended, guarding, mass, organolmegaly, rebound, tenderness Rectal exam: PRESENT: deferred Extremities exam: PRESENT: full ROM. ABSENT: calf tenderness, clubbing, pedal edema Neurological exam: PRESENT: alert, awake, oriented to person, oriented to place, oriented to time, oriented to situation, CN II-XII grossly intact. ABSENT: motor sensory deficit Psychiatric exam: PRESENT: appropriate affect, normal mood. ABSENT: homicidal ideation, suicidal ideation Skin exam: PRESENT: dry, intact, warm. ABSENT: cyanosis, rash Results Laboratory Results: WBC 8.1 10^3/uL (4.0-10.5) 09/26/19 04:41 RBC 4.65 10^6/uL (3.72-5.28) 09/26/19 04:41 Hgb 14.7 g/dL (12.0-15.5) 09/26/19 04:41 Hct 43.0 % (36.0-47.0) 09/26/19 04:41 MCV 92 fl (80-97) 09/26/19 04:41 MCH 31.6 pg (27.0-33.4) 09/26/19 04:41 MCHC 34.2 g/dL (32.0-36.0) 09/26/19 04:41 RDW 13.4 % (11.5-14.0) 09/26/19 04:41 Plt Count 282 10^3/uL (150-450) 09/26/19 04:41 Lymph % (Auto) 30.1 % (13-45) 09/26/19 04:41 [place] % (Auto) 11.2 % (3-13) 09/26/19 04:41 Eos % (Auto) 2.3 % (0-6) 09/26/19 04:41 Baso % (Auto) 1.0 % (0-2) 09/26/19 04:41 Absolute Neuts (auto) 4.5 10^3/uL (1.7-8.2) 09/26/19 04:41 Absolute Lymphs (auto) 2.4 10^3/uL (0.5-4.7) 09/26/19 04:41 Absolute Monos (auto) 0.9 10^3/uL (0.1-1.4) 09/26/19 04:41 Absolute Eos (auto) 0.2 10^3/uL (0.0-0.6) 09/26/19 04:41 Absolute Basos (auto) 0.1 10^3/uL (0.0-0.2) 09/26/19 04:41 Seg Neutrophils % 55.4 % (42-78) 09/26/19 04:41 ESR 18 mm/hr (0-30) 09/27/19 11:11 D-Dimer 1.07 ug/mL (0.00-0.50) H 09/23/19 08:00 Sodium 136.4 mmol/L (137-145) L 09/26/19 04:41 Potassium 5.0 mmol/L (3.6-5.0) 09/26/19 04:41 Chloride 102 mmol/L (98-107) 09/26/19 04:41 Carbon Dioxide 26 mmol/L (22-30) 09/26/19 04:41 Anion Gap 8 (5-19) 09/26/19 04:41 BUN 20 mg/dL (7-20) 09/26/19 04:41 Creatinine 0.61 mg/dL (0.52-1.25) 09/26/19 04:41 Est GFR ( Amer) > 60 (>60) 09/26/19 04:41 Est GFR (MDRD) Non-Af > 60 (>60) 09/26/19 04:41 Glucose 94 mg/dL (75-110) 09/26/19 04:41 Calcium 9.6 mg/dL (8.4-10.2) 09/26/19 04:41 Magnesium 2.1 mg/dL (1.6-2.3) 09/26/19 04:41 Total Bilirubin 1.0 mg/dL (0.2-1.3) 09/26/19 04:41 Direct Bilirubin 0.2 mg/dL (0.0-0.4) 09/26/19 04:41 Neonat Total Bilirubin Not Reportable 09/26/19 04:41 Neonat Direct Bilirubin Not Reportable 09/26/19 04:41 Neonat Indirect Bili Not Reportable 09/26/19 04:41 AST 28 U/L (14-36) 09/26/19 04:41 ALT 41 U/L (<35) H 09/26/19 04:41 Alkaline Phosphatase 80 U/L (38-126) 09/26/19 04:41 Creatine Kinase 45 U/L (30-135) 09/23/19 21:36 CK-MB (CK-2) 0.87 ng/mL (<4.55) 09/23/19 21:36 Troponin I 0.019 ng/mL 09/23/19 21:36 C-Reactive Protein 9.3 mg/L (<10.0) 09/22/19 22:25 NT-Pro-B Natriuret Pep 984 pg/mL (<125) H 09/24/19 05:53 Total Protein 7.1 g/dL (6.3-8.2) 09/26/19 04:41 Albumin 4.0 g/dL (3.5-5.0) 09/26/19 04:41 Triglycerides 150 mg/dL (<150) 09/26/19 04:41 Cholesterol 224.32 mg/dL (0-200) H 09/26/19 04:41 LDL Cholesterol Direct 150 mg/dL (<100) H 09/26/19 04:41 VLDL Cholesterol 30.0 mg/dL (10-31) 09/26/19 04:41 HDL Cholesterol 53 mg/dL (>40) 09/26/19 04:41 Vitamin B12 758.0 pg/mL (239-931) 09/27/19 11:11 TSH 2.41 uIU/mL (0.47-4.68) 09/23/19 08:00 Free T4 1.16 ng/dL (0.78-2.19) 09/22/19 22:25 Free T3 pg/mL 3.72 pg/mL (2.77-5.27) 09/22/19 22:25 09/22/19 09/22/19 09/23/19 22:25 22:25 05:08 CK-MB (CK-2) Troponin I 0.028 0.032 NT-Pro-B Natriuret Pep 1710 H 09/23/19 09/23/19 09/23/19 08:00 09:43 14:30 CK-MB (CK-2) 0.94 1.13 Troponin I 0.030 0.023 0.024 NT-Pro-B Natriuret Pep 09/23/19 09/24/19 21:36 05:53 CK-MB (CK-2) 0.87 Troponin I 0.019 NT-Pro-B Natriuret Pep 984 H Impressions: Chest X-Ray 09/22/19 22:12 IMPRESSION: Mild interstitial markings. Differential diagnosis includes pulmonary edema, atypical pneumonitis, and chronic interstitial lung disease. Small bibasilar atelectasis or scar. Chest X-Ray 09/26/19 00:00 IMPRESSION: Improved. Minimal persistent interstitial changes. Plan Time Spent: Greater than 30 Minutes - Follow outpatients Dr. Mijares Follow-up for cardiac cath Follow in office 1 week repeat the Chem-7 Stroke Is this a Stroke Patient?: No Acute Heart Failure - Is this a Heart Failure Patient?: Yes Documentation of LVEF assessment?: Yes LVEF < 40%?: Yes-if yes answer questions a through e a) Discharged on ACEI?: Yes b) Discharges on ARB?: N/A-Discharged on ARNI c) Discharged on ARNI?: Yes d) Discharged on evidence-based Beta carlo(carvedilol, sustained release metoprolol succinate, or bisoprolol)?: Yes e) For LVEF <35%, discharged on Aldosterone antagonist?: Yes 3. Anticoagulant therapy for permanect/persistent/paraoxysmal Afib or Aflutter: N/A Reason(s) not discharged on anticoagulant therapy for permanect/persistent/paraoxysmal Afib or Aflutter: Other Follow-up Appointment scheduled within 7 days?: Yes
[2019-09-27 15:22] VITALS: BP 93/64
--- NOTE | 2019-09-27 16:17 | Progress Note ---
Provider Note Provider Note: CARDIOLOGY PROGRESS NOTE by Dr. Huong Iyer on 09/27/2019. SUBJECTIVE: The patient at rest is noted chest pain or discomfort. There is no arrhythmia seen. There is no PND or orthopnea. There is no arrhythmia seen on the monitor. The patient is anxious to go home. At present she is well compensated. But still has shortness of breath even sometimes with mild exertion. Patient is [place] heart failure classification class III. She is awaiting the LifeVest. PHYSICAL EXAMINATION: The patient is mildly obese. In no acute distress. Selected Entries 09/27/19 09/27/19 07:00 09:06 Temperature 98.2 F Temperature Oral Source Pulse Rate 98 101 H Respiratory 18 Rate Blood Pressure 102/67 Blood Pressure 78 Mean BP Location Right Arm BP Position Sitting O2 Sat by Pulse 99 Oximetry Oxygen Delivery Room Air Method HEAD: Is atraumatic normocephalic. EYES: Pupils are equal round regular reactive light accommodation. Extraocular movements are normal. There is no conjunctival pallor. There is no scleral icterus. EARS: Tympanic membranes are intact. Externally external auditory canals are clear. NOSE: There is no deviated nasal septum. There is no inflammation nasal mucous membrane. MOUTH: Mucous membranes of the mouth are moist. There is no ulcers. There is no bleeding from the gums. THROAT: There is no redness of the oropharynx. There is no exudates. SKIN: There is no skin rashes. There is no petechia or ecchymosis. There is no skin lesions. NECK: Supple. There is no definite JVD. Carotids are equal there is no bruit there is no lymphadenopathy. There is no accessory muscles of respiration use. There is no goiter. LUNGS: Clear to auscultation percussion without any rhonchi rales or wheezing. HEART: On examination S1-S2 is heard normally. There is no S3 gallop. There is no S4 gallop. There is sinus tachycardia. There is . There is systolic murmur left sternal border and the apex. There is no rub. ABDOMEN: Is mildly obese. Nontender. There is no hepatosplenomegaly. Bowel sounds are well heard. EXTREMITIES: Femorals are slightly deep. There is no femoral bruits. Leg pulses are well felt. There is no pedal edema. There is no DVT/cellulitis. There is no cyanosis or clubbing. There is no calf tenderness. RN SEXUAL ASSAULT: The patient is conscious awake alert oriented x3 with no focal deficits. PSYCHIATRIC: The patient judgment and insight are intact her affect is normal. The patient's 24-hour intake and output for the last 24 hours has not been recorded. IMPRESSION/RECOMMENDATION: 1. Acute left ventricular systolic heart failure. This is secondary to cardiomyopathy of unknown etiology. We will add spironolactone. Will increase the patient's beta-carlo. Continue the patient on Lasix and CONSTANTIN inhibitor. In view the patient is young age and with a history of complaints of p alpitations, would strongly recommend placing the patient on a LifeVest to prevent sudden . Prescription form for LifeVest prescribed and this will be faxed to [facility]. Will check SMA-7 in the a.m. I have again gone over the recommendation that if there is no significant coronary artery disease found by cardiac catheterization. Then the patient will be advised to repeat an echo in 3 months from the prior date of prior echo, and if this is 35% or less ejection fraction then the patient will be recommended to have an AICD placement. Will repeat chest x-ray in a.m. Await LifeVest. 2. Cardiomyopathy: With some moderate to severely reduced LV ejection fraction of 30% to 35%. Etiology of this is not clear. But have recommend strongly that the patient cardiac catheterization to rule out coronary artery disease as a cause of the patient's cardiomyopathy. We will arrange for an outpatient cardiac catheterization to exclude coronary artery disease 3. History of migraines.: Patient was on amitriptyline which has not been resumed. 4. History of GERD. 5. Multiple CAD risk factors namely age and family history positive for coronary artery disease. Later when the patient stable will get a IV Lexiscan Cardiolite stress test. 5. Hyperlipidemia. The patient's HDL is good at 53, her LDL is elevated at 150. Her triglycerides are normal. Discussed the need to bring the LDL below 100 with the patient. Unable to get a formal dietary consult. The nurses promised me that she will educate the patient on a low-fat low-cholesterol diet.. 6. So far there is no evidence of a acute coronary syndrome. The patient troponin I are serially negative 7.[place] heart failure classification is class III. Medications reviewed. Medications adjusted. Medical regimen and management plan discussed with the attending provider on the case covering Dr. Horan. Medical decision making is of moderate complexity. And also rediscussed the recommendation of cardiac catheterization, and the recommendation for LifeVest to prevent sudden . Discussed this with the patient and patient's family especially the . 40 minutes spent with patient more than 50% time spent in direct patient care. Will sign off and follow the patient in the office in the next week. The patient has my cell phone number to call me if she has any problems.
== END 2019-09-27 16:30 | disposition home or self-care (01) | DRG 292 ==
LOC: ER 21:21 → EH 09-23 08:49 → 5 09-23 14:01
PROVIDERS: ADMIT Family Medicine; ATTEND Family Medicine
DX: I50.21 Acute systolic (congestive) heart failure (principal); I42.9 Cardiomyopathy, unspecified; R00.0 Tachycardia, unspecified; F41.1 Generalized anxiety disorder; Z79.899 Other long term (current) drug therapy; G43.909 Migraine, unspecified, not intractable, without status migrainosus; K21.9 Gastro-esophageal reflux disease without esophagitis; E66.9 Obesity, unspecified; Z88.0 Allergy status to penicillin; Z88.2 Allergy status to sulfonamides; Z68.34 Body mass index [BMI] 34.0-34.9, adult
CPT/HCPCS: 36415; 71045; 71046; 80048; 80053; 80061; 80076; 82550; 82553; 82607; 83735; 83880; 84425; 84439; 84443; 84481; 84484; 85025; 85379; 85652; 86038; 86140; 86431; 93005; 93010; 93306; 99285; J1160; J1650; J1940; J2060; J3490

== ENCOUNTER 2020-05-13 02:33 | Emergency (ER) | payer OTHER ==
[2020-05-13 03:17] LABS: ABSOLUTE BASOPHILS # (AUTO) 0.1 10^3/uL (0.0-0.2); ABSOLUTE EOSINOPHILS # (AUTO) 0.1 10^3/uL (0.0-0.6); ABSOLUTE LYMPHOCYTES (AUTO) 2.8 10^3/uL (0.5-4.7); ABSOLUTE MONOCYTES (AUTO) 0.9 10^3/uL (0.1-1.4); ABSOLUTE NEUT (AUTO) 5.7 10^3/uL (1.7-8.2); BASOPHILS % (AUTO) 0.8 % (0-2); EOSINOPHILS % (AUTO) 1.3 % (0-6); HEMATOCRIT 41.2 % (36.0-47.0); HEMOGLOBIN 14.6 g/dL (12.0-15.5); LYMPHOCYTES % (AUTO) 29.1 % (13-45); MEAN CORPUSCULAR HEMOGLOBIN 32.5 pg (27.0-33.4); MEAN CORPUSCULAR HGB CONC 35.4 g/dL (32.0-36.0); MEAN CORPUSCULAR VOLUME 92 fl (80-97); PLATELET COUNT 270 10^3/uL (150-450); RED BLOOD COUNT 4.48 10^6/uL (3.72-5.28); RED CELL DISTRIBUTION WIDTH 12.5 % (11.5-14.0); SEGMENTED NEUTROPHILS % (AUTO) 59.8 % (42-78); TOTAL CELLS COUNTED % (AUTO) 100 %; WHITE BLOOD COUNT 9.6 10^3/uL (4.0-10.5)
[2020-05-13 03:31] LABS: ALBUMIN 3.8 g/dL (3.5-5.0); ALKALINE PHOSPHATASE 90 U/L (38-126); ANION GAP 7 (5-19); ASPARTATE AMINO TRANSFERASE 22 U/L (14-36); BILIRUBIN,DIRECT 0.2 mg/dL (0.0-0.4); BILIRUBIN,TOTAL 0.8 mg/dL (0.2-1.3); BLOOD UREA NITROGEN 23 mg/dL (7-20); CALCIUM 9.4 mg/dL (8.4-10.2); CARBON DIOXIDE 25 mmol/L (22-30); CHLORIDE 103 mmol/L (98-107); GLUCOSE 103 mg/dL (75-110); NEONATAL BILIRUBIN RESULT 0.6 mg/dL (0.1-1.1); POTASSIUM 4.3 mmol/L (3.6-5.0); TOTAL PROTEIN 6.5 g/dL (6.3-8.2)
--- NOTE | 2020-05-13 04:27 | RADIOLOGY REPORT (SQ) ---
EXAM DESCRIPTION: XR CHEST 2 VIEWS COMPLETED DATE/TME: 05/13/2020 00:00 CLINICAL HISTORY: 49 years, Female, dizziness/chf/sob COMPARISON: 09/26/2019 chest NUMBER OF VIEWS: 2 TECHNIQUE: Frontal and lateral views of the chest LIMITATIONS: None. FINDINGS: The heart size is normal. The lungs are clear. No pneumothorax IMPRESSION: No acute cardiopulmonary process copyright 2010 [employer]- All Rights Reserved
[2020-05-13] MEDS ORDERED: ONDANSETRON 4 MG TAB.RAPDIS PO ONE (04:44)
--- NOTE | 2020-05-13 05:00 | ER Document Report ---
ED General - General Chief Complaint: Dizziness Stated Complaint: DIZZINESS,NAUSEA Time Seen by Provider: 05/13/20 03:49 Primary Care Provider: SARY ERIC MD [Primary Care Provider] - Follow up as needed TRAVEL OUTSIDE OF THE [place] IN LAST 30 DAYS: No - HPI Context: Patient is a 49-year-old female with a history of congestive heart failure presenting to the emergency department complaining of dizziness and nausea. Patient states symptoms have been present for approximately 2 days. Patient states that the symptoms are similar to when she had her CHF exacerbation back in September of this year. Patient states dizziness is worse when she changes positions. Patient denies exacerbation of symptoms with head turning. Patient states she took twice her usual dose of as needed Lasix this week. Patient states she took the Lasix prior to onset of symptoms. Patient denies fever, chills, shortness of breath, orthopnea, chest pain. Patient denies history of COVID infection, known exposure to positive COVID persons or exposure to persons under investigation for COVID. Associated symptoms: Other - See HPI Exacerbated by: Other - See HPI Relieved by: Other - See HPI - Related Data Allergies/Adverse Reactions: Penicillins Allergy (Intermediate, Verified 09/23/19 10:56) Vomiting Sulfa (Sulfonamide Antibiotics) Allergy (Intermediate, Verified 09/23/19 10:56) RASH Past Medical History - General Information source: Patient - Social History Smoking Status: Never Smoker Chew tobacco use (# tins/day): No Frequency of alcohol use: None Family History: Reviewed & Not Pertinent, CAD Patient has homicidal ideation: No Past Surgical History: Reports: Hx Breast Surgery - Immunizations Hx Diphtheria, Pertussis, Tetanus Vaccination: No Review of Systems - Review of Systems Constitutional: No symptoms reported EENT: No symptoms reported Cardiovascular: No symptoms reported Respiratory: No symptoms reported Gastrointestinal: Nausea Genitourinary: No symptoms reported Female Genitourinary: No symptoms reported Musculoskeletal: No symptoms reported Skin: No symptoms reported Hematologic/Lymphatic: No symptoms reported Neurological/Psychological: Other - Dizziness -: Yes All other systems reviewed and negative Physical Exam - Vital signs Vitals: Temp Pulse Resp BP Pulse Ox 97.6 F 64 18 121/53 L 98 05/13/20 02:47 05/13/20 02:47 05/13/20 02:47 05/13/20 02:47 05/13/20 02:47 - Notes Notes: CONSTITUTIONAL [Vital signs reviewed, Patient appears comfortable, Alert and oriented X 3, Normal stature.] HEAD [Atraumatic, Normocephalic.] EYES [Lateral fatiguing nystagmus is present, no discharge from eyes, Extraocular muscles intact, Sclera are normal, Conjunctiva are normal.] NECK [Normal ROM, No jugular venous distention, No meningeal signs, no carotid bruit.] RESPIRATORY CHEST [Chest is nontender, Breath sounds normal, No respiratory distress.] CARDIOVASCULAR [RRR, No murmurs, Normal S1 S2, No rub, No gallop.] ABDOMEN [Abdomen is nontender, No pulsatile masses, No other masses, Bowel sounds normal, No distension, No peritoneal signs, No hernias.] BACK [There is no CVA Tenderness, There is no tenderness to palpation, Normal inspection.] UPPER EXTREMITY [Inspection normal, No cyanosis, No clubbing, No edema, 2+ radial pulses.] LOWER EXTREMITY [Inspection normal, No cyanosis, No clubbing, No edema, No calf tenderness, 2+ femoral pulses.] NEURO [No focal motor deficits, No focal sensory deficits, Speech normal.] SKIN [Skin is warm, Skin is dry, Skin is normal color.] LYMPHATIC [No adenopathy in neck.] PSYCHIATRIC [Normal affect. ] Course - Re-evaluation Re-evalutation: 05/13/20 06:54 Patient states she is feeling better. Patient is sitting up at the bedside and is in no obvious distress. Results of ED MSE discussed with patient. All questions were answered prior to discharge. Emergency signs and symptoms, reasons to return to the emergency department discussed with patient. - Vital Signs Vital signs: Temp Pulse Resp BP Pulse Ox 98.3 F 56 L 16 124/67 99 05/13/20 06:02 05/13/20 04:57 05/13/20 06:02 05/13/20 06:02 05/13/20 06:02 - Laboratory Result Diagrams: 05/13/20 03:00 05/13/20 03:00 Laboratory results interpreted by me: 05/13/20 05/13/20 03:00 03:00 Sodium 134.6 L BUN 23 H NT-Pro-B Natriuret Pep 226 H - EKG Interpretation by Me Additional EKG results interpreted by me: 05/13/20 05:21 EKG obtained on 05/13/2020 at 0253 hrs. was interpreted by this MD. Findings sinus bradycardia, rate 55, normal axis, MO interval appears to be within normal limits, P waves proceed QRS complexes, QRS complexes appear narrow, there are no obvious patterns of ST segment elevation or depression present to suggest acute myocardial ischemia or infarction. Impression sinus bradycardia with nonspecif ic ST segments. Discharge - Discharge Clinical Impression: Vertigo, peripheral Qualifiers: Laterality: unspecified laterality Qualified Code(s): H81.399 - Other peripheral vertigo, unspecified ear Condition: Stable Disposition: HOME, SELF-CARE Instructions: Antinausea Medication ([facility]), Vertigo ([facility]), Meclizine ([facility]) Additional Instructions: Return to the Emergency Department without delay if any worse. HOME CARE INSTRUCTIONS & INFORMATION: Thank you for choosing us for your medical needs. We hope you're satisfied with the care you received. After you leave, you must properly care for your problem and, at the same time, observe its progress. Any condition can change. Some illnesses can change rapidly over hours or days. If your condition worsens, return to the Emergency Department or see your physician promptly. ABOUT YOUR X-RAYS AND EKG'S: If you had an EKG or X-rays taken, they have been read by the Emergency Physician. The X-rays and EKG's will also be read by a Radiologist or Casing Flusher within 24 hours. If discrepancies are noted, you will be notified by telephone. Please be certain the ED has a correct telephone number & address where you can be reached. Also, realize that some fractures or abnormalities do not show up on initial X-rays. If your symptoms continue, see your physician. ABOUT YOUR LABORATORY TEST: If you had laboratory tests, the results have been reviewed by the Emergency Physician. Some test results (for example cultures) may not be available for several days. You will be contacted if any test result shows you need additional treatment. Please be certain the ED has a correct telephone number and address where you can be reached. ABOUT YOUR MEDICATIONS: You will receive instructions on how to take your med icine on the prescription label you receive. Additional information may be provided by the Pharmacy. If you have questions afterwards, call the ED for clarification or further instructions. Some prescribed medications may cause drowsiness. Do not perform tasks such as driving a car or operating machinery without consulting your Pharmacist. If you feel you need a refill of pain medication, your condition will need re-evaluation. Please do not call for a refill of any medication. ABOUT YOUR SIGNATURE: Signature of this document acknowledges to followin. Understanding that you received emergency treatment and that you may be released before al medical problems are known or treated. Please be certain the ED has a correct phone number & address where you can be reached. 2. Acknowledgement that you will arrange for follow-up care as recommended. 3. Authorization for the Emergency Physician to provide information to your follow-up Physician in order to maximize your care. AT ANY TIME, IF YOUR SYMPTOMS CHANGE SIGNIFICANTLY OR WORSEN OR YOU DEVELOP NEW SYMPTOMS, RETURN TO THE EMERGENCY DEPARTMENT IMMEDIATELY FOR RE-EVALUATION. OUR GOAL IS TO PROVIDE EXCELLENT MEDICAL CARE! WE HOPE THAT WE HAVE MET YOUR EXPECTATIONS DURING YOUR EMERGENCY DEPARTMENT VISIT AND THAT YOU FEEL YOU HAVE RECEIVED EXCELLENT CARE! Prescriptions: Ondansetron [Zofran Odt 4 mg Tablet] 1 tab PO Q8HP PRN #21 tab.rapdis PRN Reason: For Nausea/Vomiting Meclizine HCl [Antivert 25 mg Tablet] 25 mg PO TID PRN #30 tablet PRN Reason: Referrals: SARY ERIC MD [Primary Care Provider] - Follow up as needed
[2020-05-13] MEDS ORDERED: NORMAL SALINE 500 ML IV ONE (05:12)
[2020-05-13] MEDS ORDERED: MECLIZINE HCL 25 MG TABLET PO ONE (05:12)
[2020-05-13 05:33] LABS: NT PRO BNP 226 pg/mL (<125)
[2020-05-13 05:39] LABS: TROPONIN I < 0.012 ng/mL
[2020-05-13 07:09] VITALS: BP 117/77
--- NOTE | 2020-05-13 08:29 | EKG REPORT ---
SEVERITY:- BORDERLINE ECG - SINUS RHYTHM CONSIDER ANTERIOR INFARCT BORDERLINE T ABNORMALITIES, ANTERIOR LEADS : Confirmed by: Evens Foreman MD 13-May-2020 08:28:38
== END 2020-05-13 07:30 | disposition home or self-care (01) ==
LOC: ER 02:33
DX: H81.399 Other peripheral vertigo, unspecified ear (principal); R11.0 Nausea; I50.9 Heart failure, unspecified
CPT/HCPCS: 93005; 99285; 96360; 36415; 85025; 80053; 84484; 83880; 71046; 93010; S0119; J7040